=== PATIENT | female | born 1990 | race Two or more races ===

== ENCOUNTER 2019-08-29 23:46 | Inpatient (IN) | payer BC ==
[2019-08-30] MEDS ORDERED: Carboprost Tromethamine 250 MCG/1 ML Amp IM PRN (00:29)
[2019-08-30] MEDS ORDERED: Sodium Chloride 0.9% 10 ML Syringe FLUSH PRN (00:29)
[2019-08-30] MEDS ORDERED: Methylergonovine 0.2 MG/1 ML Amp IM PRN (00:29)
[2019-08-30] MEDS ORDERED: Tranexamic Acid 1,000 MG in Sodium Chloride 0.9% 100 ML IV PRN (00:29)
[2019-08-30] MEDS ORDERED: Sodium Chloride 0.9% 10 ML SDV IV PRN (00:29)
[2019-08-30] MEDS ORDERED: Sodium Chloride 0.9% 2.5 ML Syringe FLUSH PRN (00:29)
[2019-08-30] MEDS ORDERED: Nalbuphine 10 MG/1 ML Vial IVPUSH PRN (00:29)
[2019-08-30] MEDS ORDERED: Lidocaine 1% 50 ML MDV INJECT PRN (00:29)
[2019-08-30] MEDS ORDERED: Water For Irrigation,Sterile 1,000 ML Container IRR PRN (00:29)
[2019-08-30] MEDS ORDERED: Butorphanol 1 MG/ML SDV IVPUSH PRN (00:29)
[2019-08-30] MEDS ORDERED: Misoprostol 200 MCG Tab PO PRN (00:29)
[2019-08-30] MEDS ORDERED: Oxytocin/0.9 % Sodium Chloride 30 UNIT/500 ML BAG IV SCH ×3 (00:30→08:00)
[2019-08-30] MEDS ORDERED: Lactated Ringers 1,000 ML IV SCH (00:30)
[2019-08-30] MEDS ORDERED: Misoprostol 25 MCG (1/4 of 100 MCG) Tab VAG PRN ×2 (00:31)
[2019-08-30] MEDS ORDERED: Terbutaline 1 MG/ML SDV SUBCUT PRN (00:31)
[2019-08-30] MEDS ORDERED: Misoprostol 25 MCG (1/4 of 100 MCG) Tab PO ONE (00:32)
[2019-08-30 03:35] LABS: BLOOD UREA NITROGEN,BUN 18 mg/dL (7.0-18.0); CARBON DIOXIDE,CO2 23.9 mmol/L (21.0-32.0); CHLORIDE,CL 105 mmol/L (98-107); GLUCOSE RANDOM 111 mg/dL (74-106); POTASSIUM,K 4.4 mmol/L (3.5-5.1); SODIUM,NA 140 mmol/L (136-145)
[2019-08-30] MEDS ORDERED: Labetalol 100 MG/20 ML MDV IVPUSH ONE (06:54)
[2019-08-30] MEDS ORDERED: Calcium Gluconate 10% 1 GM/10 ML SDV IV PRN (07:46)
[2019-08-30] MEDS ORDERED: Magnesium Sulfate/Water 4 GM in Premix Bag 1 BAG IV ONE (07:46)
[2019-08-30] MEDS: Magnesium Sulfate/Water 20 GM/500 ML BAG IV SCH ×2 (08:30→18:31)
[2019-08-30] MEDS ORDERED: Ropivacaine HCl/PF 100 ML ONE ×2 (09:03→17:51)
[2019-08-30] MEDS ORDERED: fentaNYL 100 MCG/2 ML SDV ONE ×3 (09:03→17:51)
--- NOTE | 2019-08-30 09:31 | PCM.PREANE ---
Preanesthetic Assessment - Anesthesia/Transfusion/Family Hx Anesthesia History: No Prior Anesthesia Family History of Anesthesia Reaction: No Transfusion History: No Prior Transfusion(s) - Physical Assessment NPO Status Date: 08/30/19 NPO Status Time: 01:00 Height: 1.55 m Weight: 78.471 kg ASA Class: 1 - Lab Values: Laboratory Last Values WBC 7.17 K/uL (4.0-11.0) 08/30/19 00:50 RBC 3.22 M/uL (4.30-5.90) L 08/30/19 00:50 Hgb 10.0 g/dL (12.0-16.0) L 08/30/19 00:50 Hct 29.6 % (36.0-46.0) L 08/30/19 00:50 MCV 91.9 fL (80.0-98.0) 08/30/19 00:50 MCH 31.1 pg (27.0-32.0) 08/30/19 00:50 MCHC 33.8 g/dL (31.0-37.0) 08/30/19 00:50 RDW Std Deviation 43.6 fl (28.0-62.0) 08/30/19 00:50 RDW Coeff of Seble 14 % (11.0-15.0) 08/30/19 00:50 Plt Count 158 K/uL (150-400) 08/30/19 00:50 MPV 10.80 fL (7.40-12.00) 08/30/19 00:50 Sodium 140 mmol/L (136-145) 08/30/19 00:50 Potassium 4.4 mmol/L (3.5-5.1) 08/30/19 00:50 Chloride 105 mmol/L (98-107) 08/30/19 00:50 Carbon Dioxide 23.9 mmol/L (21.0-32.0) 08/30/19 00:50 BUN 18 mg/dL (7.0-18.0) 08/30/19 00:50 Creatinine 0.6 mg/dL (0.6-1.0) 08/30/19 00:50 Est Cr Clr Drug Dosing 106.28 mL/min 08/30/19 00:50 Estimated GFR (MDRD) > 60.0 ml/min 08/30/19 00:50 Glucose 111 mg/dL (74-106) H 08/30/19 00:50 Uric Acid 6.9 mg/dL (2.6-7.2) 08/30/19 00:50 Calcium 9.1 mg/dL (8.5-10.1) 08/30/19 00:50 Total Bilirubin 0.2 mg/dL (0.2-1.0) 08/30/19 00:50 AST 20 IU/L (15-37) 08/30/19 00:50 ALT 12 IU/L (14-63) L 08/30/19 00:50 Alkaline Phosphatase 178 U/L (46-116) H 08/30/19 00:50 Total Protein 6.0 g/dL (6.4-8.2) L 08/30/19 00:50 Albumin 2.3 g/dL (3.4-5.0) L 08/30/19 00:50 Globulin 3.7 g/dL (2.6-4.0) 08/30/19 00:50 Albumin/Globulin Ratio 0.6 (0.9-1.6) L 08/30/19 00:50 Urine Color YELLOW 08/30/19 01:20 Urine Appearance HAZY 08/30/19 01:20 Urine pH 6.0 (5.0-8.0) 08/30/19 01:20 Ur Specific [place] 1.025 (1.001-1.035) 08/30/19 01:20 Urine Protein 100 mg/dL (NEGATIVE) H 08/30/19 01:20 Urine Glucose (UA) NEGATIVE mg/dL (NEGATIVE) 08/30/19 01:20 Urine Ketones NEGATIVE mg/dL (NEGATIVE) 08/30/19 01:20 Urine Occult Blood TRACE-INTACT (NEGATIVE) H 08/30/19 01:20 Urine Nitrite NEGATIVE (NEGATIVE) 08/30/19 01:20 Urine Bilirubin NEGATIVE (NEGATIVE) 08/30/19 01:20 Urine Urobilinogen 0.2 EU/dL (<2.0) 08/30/19 01:20 Ur Leukocyte Esterase NEGATIVE (NEGATIVE) 08/30/19 01:20 Blood Type O POSITIVE 08/30/19 00:50 Antibody Screen NEGATIVE 08/30/19 00:50 - Allergies Allergies/Adverse Reactions: Allergies Allergy/AdvReac Type Severity Reaction Status Date / Time No Known Allergies Allergy Verified 02/05/17 10:20 - Acknowledgements Anesthesia Type Planned: Epidural Pt an Appropriate Candidate for the Planned Anesthesia: Yes Alternatives and Risks of Anesthesia Discussed w Pt/Guardian: Yes Pt/Guardian Understands and Agrees with Anesthesia Plan: Yes PreAnesthesia Questionnaire - Past Health History Medical/Surgical History: Denies Medical/Surgical History HEENT History: Reports: None Cardiovascular History: Reports: None Respiratory History: Reports: None Gastrointestinal History: Reports: None Genitourinary History: Reports: None 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: Musculoskeletal History: Reports: None Neurological History: Reports: Migraines Psychiatric History: Reports: None Endocrine/Metabolic History: Reports: None Hematologic History: Reports: None Immunologic History: Reports: None Oncologic (Cancer) History: Reports: None Dermatologic History: Reports: None - Infectious Disease History Infectious Disease History: Reports: None - Past Surgical History HEENT Surgical History: Reports: None Female Surgical History: Reports: None - SUBSTANCE USE Smoking Status *Q: Never Smoker Second Hand Smoke Exposure: No Recreational Drug Use History: No - HOME MEDS Home Medications: Home Meds Pnv No.103/Folic/Om3s/Fish Oil [ Gummies] 1 tab PO DAILY 07/04/19 [ History] - CURRENT (IN HOUSE) MEDS Current Meds: Current Medications Butorphanol Tartrate (Stadol) 1 mg IVPUSH Q1H PRN PRN Reason: Pain Calcium Gluconate (Calcium Gluconate) 1 gm IV ASDIRECTED PRN PRN Reason: respiratory distress Carboprost Tromethamine (Hemabate Ds) 250 mcg IM ASDIRECTED PRN PRN Reason: Post Hemorrhage Lactated Ringer's (Ringers, Lactated) 1,000 mls @ 150 mls/hr IV ASDIRECTED [facility] Oxytocin/Sodium Chloride (Oxytocin 30 Unit/500 Ml-Ns) 30 unit in 500 mls @ 500 mls/hr IV TITRATE MONA Tranexamic Acid 1,000 mg/ (Sodium Chloride) 110 mls @ 660 mls/hr IV ONETIME PRN PRN Reason: Bleeding Magnesium Sulfate (Magnesium Sulfate In Water Premix) 20 gm in 500 mls @ 50 mls /hr IV ASDIRECTED [facility] Last Admin: 08/30/19 08:30 Dose: 2 gm/hr, 50 mls/hr Oxytocin/Sodium Chloride (Oxytocin 30 Unit/500 Ml-Ns) 30 unit in 500 mls @ 2 mls/hr IV TITRATE MONA; Protocol Lidocaine HCl (Xylocaine 1%) 50 ml INJECT ONETIME PRN PRN Reason: Laceration repair Methylergonovine Maleate (Methergine) 0.2 mg IM ASDIRECTED PRN PRN Reason: Post Hemorrhage Misoprostol (Cytotec) 200 mcg PO ONETIME PRN PRN Reason: Post Hemorrhage Misoprostol (Cytotec) 25 mcg VAG ONETIME PRN PRN Reason: Cervical Ripening Last Admin: 08/30/19 01:29 Dose: 25 mcg Misoprostol (Cytotec) 25 mcg VAG Q4H PRN PRN Reason: Cervical Ripening Nalbuphine HCl (Nubain) 10 mg IVPUSH Q1H PRN PRN Reason: Pain (severe 7-10) Sodium Chloride (Saline Flush) 10 ml FLUSH ASDIRECTED PRN PRN Reason: Keep Vein Open Sodium Chloride (Saline Flush) 2.5 ml FLUSH ASDIRECTED PRN PRN Reason: Keep Vein Open Sodium Chloride (Normal Saline) 10 ml IV ASDIRECTED PRN PRN Reason: IV Use Sterile Water (Sterile Water For Irrigation) 1,000 ml IRR ASDIRECTED PRN PRN Reason: delivery Terbutaline Sulfate (Brethine) 0.25 mg SUBCUT ASDIRECTED PRN PRN Reason: Tacysystole Discontinued Medications Fentanyl (Sublimaze) Confirm Administered Dose 100 mcg .ROUTE .STK-MED ONE Stop: 08/30/19 09:04 Oxytocin/Sodium Chloride (Oxytocin 30 Unit/500 Ml-Ns) 30 unit in 500 mls @ 2 mls/hr IV TITRATE MONA; Protocol Magnesium Sulfate 4 gm/ Premix 100 mls @ 300 mls/hr IV BOLUS ONE Stop: 08/30/19 08:05 Last Admin: 08/30/19 08:15 Dose: 300 mls/hr Ropivacaine (Naropin 0.2%) Confirm Administered Dose 100 mls @ as directed .ROUTE .STK-MED ONE Stop: 08/30/19 09:04 Labetalol HCl (Normodyne) 10 mg IVPUSH ONETIME ONE; Protocol Stop: 08/30/19 06:55 Last Admin: 08/30/19 07:12 Dose: 10 mg Misoprostol (Cytotec) 25 mcg PO ONETIME ONE Stop: 08/30/19 00:33 Last Admin: 08/30/19 01:31 Dose: 25 mcg
--- NOTE | 2019-08-30 09:34 | PCM.PRNOTE ---
- Free Text/Narrative Note: Anes Note Patietn requests epidural for L&D. Sitting position, level L3-L4 miline approach. Sterile technique. Chloraprep scrub to lumbar area. Sterile fenestrated drape applied. Epidural space easily achieved using OLIVA technique. OLIVA at 4 cm. Cath threaded 5 cm with ease. Cath secure at 10 cm román ar skin using sterile clear adhesive dressing. 0917 test 3 cc 1.5% lido with epi negative 0920 load 10 cc 0.2% ropivicaine with 1 mcg cc fentanyl in slow divided doses. Pump started with 90 cc same solution. Rate is 8 cc hr with 6 cc q 20 min prn bolus. Zohaib well. Time with patient [id number] Marlon Alejandre PHOTOGRAPHY INTERN
[2019-08-30] MEDS ORDERED: Labetalol 100 MG/20 ML MDV IVPUSH PRN (11:13)
[2019-08-30] MEDS ORDERED: hydrALAZINE 20 MG/ML SDV IVPUSH PRN (11:13)
--- NOTE | 2019-08-30 12:11 | PCM.PRNOTE ---
- Free Text/Narrative Note: Anes Note Patietn reports incomplete analgesia left side. Epidural cath was removed easily and complete. A new epidural was placed at Level L3-L4 midline approach under sterile technique. Chloraprep scrub to lumbar area. Sterile fenestrated drape applied. Epidural space easily achieved single attempt using OLIVA technique. OLIVA at 3 cm. Cath threaded 5 cm with ease. Cath secured a tskin at 10 cm using sterile clear adhesive dressing. Test 1137 3 cc 1.5% lido with epi negative. 1140 load 2 cc fentanyl with 5 cc 2% lido with epi in slow divided doses. 1145 Pump restarted with same pump medication at same rate. Time with patient [id number] Marlon Alejandre CRNA
--- NOTE | 2019-08-30 18:01 | PCM.PRNOTE ---
- Free Text/Narrative Note: Anes Note Epidural infusion completed. A new bag of 100 cc 0.2% ropivicaine with 1 mcg cc fentanyl added was placed. A 5cc bolus was admisinstered, then the infusion was restarted. Rate is 8 cc hr with 6 cc q 20 min prn bolus. Time with patient [id number] Marlon Alejandre CRNA
[2019-08-30] MEDS ORDERED: Phenylephrine/Normal Saline 100 MCG/ML 10 ML Syringe ONE (19:40)
--- NOTE | 2019-08-30 20:19 | PCM.SN ---
- Free Text/Narrative Note: called to assist with post hpnt. BP 74 systolic. legs being elevated, iv of NS on presure bag. EBL for vag delivery was 500 ml. Pt with severe preeclampsia, was on mag. no off. last Mg level=7. Ephedrine 15 mg administered with prompt mandaeism to BP to 146/, 5 min later 138/, 5 min later 147. Will follow.
[2019-08-30 20:51] LABS: CARBON DIOXIDE,CO2 19.7 mmol/L (21.0-32.0); POTASSIUM,K 4.4 mmol/L (3.5-5.1)
[2019-08-30] MEDS ORDERED: Witch Hazel Medicated Pads 40/Jar TOP PRN (21:30)
[2019-08-30] MEDS ORDERED: Ibuprofen 400 MG Tab PO PRN (21:30)
[2019-08-30] MEDS ORDERED: Benzocaine/Menthol 20%-0.5% Spray 78 GM Cannister TOP PRN (21:30)
[2019-08-30] MEDS ORDERED: Bisacodyl 10 MG Supp RECTAL PRN (21:30)
[2019-08-30] MEDS ORDERED: oxyCODONE 5 MG Tab PO PRN (21:30)
[2019-08-30] MEDS ORDERED: Acetaminophen 500 MG Tab PO PRN (21:30)
[2019-08-30] MEDS ORDERED: Lanolin 100% Cream 7 GM Tube TOP PRN (21:30)
[2019-08-30] MEDS ORDERED: Docusate Sodium 100 MG Cap PO PRN (21:30)
--- NOTE | 2019-08-30 21:42 | PCM.DEL ---
L & D Note - General Info Date of Service: 08/30/19 Mother's Due Date: 08/29/19 - Delivery Note Labor: Induced by Oxytocin Cervical Ripening Method: Misoprostil Delivery Outcome: Livebirth Delivery Method: Spontaneous Vaginal Delivery-Single Presentation: Left Occiput Anterior (MIGUEL) Nuchal Cord: None Prep: Other Anesthesia Type: Epidural Amniotic Fluid Description: Meconium Stained Episiotomy Type: None Laceration: 2nd Degree Suture type: Vicryl Suture size: 3-0 Placenta: Intact, Spontaneous Cord: 3 Vessels Estimated Blood Loss: 500 Resuscitation Needed: No Vesper: Suctioned Score 1 min: 8 Score 5 min: 9 Delivery Comments (Free Text/Narrative):: Liveborn male - General Info Date of Service: 08/30/19 - Patient Data Vitals - Most Recent: Last Vital Signs Temp Pulse Resp BP Pulse Ox 97 08/30/19 07:47 Weight - Most Recent: 78.471 kg Lab Results Last 24 Hours: Laboratory Results - last 24 hr 08/30/19 08/30/19 08/30/19 Range/Units 00:50 00:50 00:50 WBC 7.17 (4.0-11.0) K/uL RBC 3.22 L (4.30-5.90) M/uL Hgb 10.0 L (12.0-16.0) g/dL Hct 29.6 L (36.0-46.0) % MCV 91.9 (80.0-98.0) fL MCH 31.1 (27.0-32.0) pg MCHC 33.8 (31.0-37.0) g/dL RDW Std Deviation 43.6 (28.0-62.0) fl RDW Coeff of Seble 14 (11.0-15.0) % Plt Count 158 (150-400) K/uL MPV 10.80 (7.40-12.00) fL Sodium 140 (136-145) mmol/L Potassium 4.4 (3.5-5.1) mmol/L Chloride 105 (98-107) mmol/L Carbon Dioxide 23.9 (21.0-32.0) mmol/L BUN 18 (7.0-18.0) mg/dL Creatinine 0.6 (0.6-1.0) mg/dL Est Cr Clr Drug Dosing 106.28 mL/min Estimated GFR (MDRD) > 60.0 ml/min Glucose 111 H (74-106) mg/dL Uric Acid 6.9 (2.6-7.2) mg/dL Calcium 9.1 (8.5-10.1) mg/dL Magnesium (1.8-2.4) mg/dL Total Bilirubin 0.2 (0.2-1.0) mg/dL AST 20 (15-37) IU/L ALT 12 L (14-63) IU/L Alkaline Phosphatase 178 H (46-116) U/L Total Protein 6.0 L (6.4-8.2) g/dL Albumin 2.3 L (3.4-5.0) g/dL Globulin 3.7 (2.6-4.0) g/dL Albumin/Globulin Ratio 0.6 L (0.9-1.6) Urine Color Urine Appearance Urine pH (5.0-8.0) Ur Specific [place] (1.001-1.035) Urine Protein (NEGATIVE) mg/dL Urine Glucose (UA) (NEGATIVE) mg/dL Urine Ketones (NEGATIVE) mg/dL Urine Occult Blood (NEGATIVE) Urine Nitrite (NEGATIVE) Urine Bilirubin (NEGATIVE) Urine Urobilinogen (<2.0) EU/dL Ur Leukocyte Esterase (NEGATIVE) Blood Type O POSITIVE Antibody Screen NEGATIVE 08/30/19 08/30/19 08/30/19 Range/Units 01:20 12:05 18:25 WBC (4.0-11.0) K/uL RBC (4.30-5.90) M/uL Hgb (12.0-16.0) g/dL Hct (36.0-46.0) % MCV (80.0-98.0) fL MCH (27.0-32.0) pg MCHC (31.0-37.0) g/dL RDW Std Deviation (28.0-62.0) fl RDW Coeff of Seble (11.0-15.0) % Plt Count (150-400) K/uL MPV (7.40-12.00) fL Sodium (136-145) mmol/L Potassium (3.5-5.1) mmol/L Chloride (98-107) mmol/L Carbon Dioxide (21.0-32.0) mmol/L BUN (7.0-18.0) mg/dL Creatinine (0.6-1.0) mg/dL Est Cr Clr Drug Dosing mL/min Estimated GFR (MDRD) ml/min Glucose (74-106) mg/dL Uric Acid (2.6-7.2) mg/dL Calcium (8.5-10.1) mg/dL Magnesium 5.2 H 7.4 H (1.8-2.4) mg/dL Total Bilirubin (0.2-1.0) mg/dL AST (15-37) IU/L ALT (14-63) IU/L Alkaline Phosphatase (46-116) U/L Total Protein (6.4-8.2) g/dL Albumin (3.4-5.0) g/dL Globulin (2.6-4.0) g/dL Albumin/Globulin Ratio (0.9-1.6) Urine Color YELLOW Urine Appearance HAZY Urine pH 6.0 (5.0-8.0) Ur Specific [place] 1.025 (1.001-1.035) Urine Protein 100 H (NEGATIVE) mg/dL Urine Glucose (UA) NEGATIVE (NEGATIVE) mg/dL Urine Ketones NEGATIVE (NEGATIVE) mg/dL Urine Occult Blood TRACE-INTACT H (NEGATIVE) Urine Nitrite NEGATIVE (NEGATIVE) Urine Bilirubin NEGATIVE (NEGATIVE) Urine Urobilinogen 0.2 (<2.0) EU/dL Ur Leukocyte Esterase NEGATIVE (NEGATIVE) Blood Type Antibody Screen 08/30/19 08/30/19 Range/Units 20:25 20:25 WBC (4.0-11.0) K/uL RBC (4.30-5.90) M/uL Hgb 8.7 L (12.0-16.0) g/dL Hct 26.3 L (36.0-46.0) % MCV (80.0-98.0) fL MCH (27.0-32.0) pg MCHC (31.0-37.0) g/dL RDW Std Deviation (28.0-62.0) fl RDW Coeff of Seble (11.0-15.0) % Plt Count (150-400) K/uL MPV (7.40-12.00) fL Sodium 137 (136-145) mmol/L Potassium 4.4 (3.5-5.1) mmol/L Chloride 105 (98-107) mmol/L Carbon Dioxide 19.7 L (21.0-32.0) mmol/L BUN 20 H (7.0-18.0) mg/dL Creatinine 1.1 H (0.6-1.0) mg/dL Est Cr Clr Drug Dosing 57.97 mL/min Estimated GFR (MDRD) 59.6 ml/min Glucose 113 H (74-106) mg/dL Uric Acid (2.6-7.2) mg/dL Calcium 7.4 L (8.5-10.1) mg/dL Magnesium 6.1 H (1.8-2.4) mg/dL Total Bilirubin 0.2 (0.2-1.0) mg/dL AST 17 (15-37) IU/L ALT 11 L (14-63) IU/L Alkaline Phosphatase 149 H (46-116) U/L Total Protein 4.9 L (6.4-8.2) g/dL Albumin 1.9 L (3.4-5.0) g/dL Globulin 3.0 (2.6-4.0) g/dL Albumin/Globulin Ratio 0.6 L (0.9-1.6) Urine Color Urine Appearance Urine pH (5.0-8.0) Ur Specific [place] (1.001-1.035) Urine Protein (NEGATIVE) mg/dL Urine Glucose (UA) (NEGATIVE) mg/dL Urine Ketones (NEGATIVE) mg/dL Urine Occult Blood (NEGATIVE) Urine Nitrite (NEGATIVE) Urine Bilirubin (NEGATIVE) Urine Urobilinogen (<2.0) EU/dL Ur Leukocyte Esterase (NEGATIVE) Blood Type Antibody Screen Med Orders - Current: Current Medications Acetaminophen (Tylenol Extra Strength) 500 mg PO Q4H PRN PRN Reason: Pain Acetaminophen (Tylenol Extra Strength) 1,000 mg PO Q4H PRN PRN Reason: Pain Benzocaine/Menthol (Dermoplast Pain Relief 20%-0.5% [place]) 78 gm TOP ASDIRECTED PRN PRN Reason: Perineal Comfort Measure Bisacodyl (Dulcolax) 10 mg RECTAL ONETIME PRN PRN Reason: Constipation Calcium Gluconate (Calcium Gluconate) 1 gm IV ASDIRECTED PRN PRN Reason: respiratory distress Carboprost Tromethamine (Hemabate Ds) 250 mcg IM ASDIRECTED PRN PRN Reason: Post Hemorrhage Docusate Sodium (Colace) 100 mg PO BID PRN PRN Reason: Constipation Emollient Ointment (Lansinoh Hpa) 0 gm TOP ASDIRECTED PRN PRN Reason: Sore Nipples Hydralazine HCl (Apresoline) 10 mg IVPUSH ONETIME PRN PRN Reason: Hypertension Tranexamic Acid 1,000 mg/ (Sodium Chloride) 110 mls @ 660 mls/hr IV ONETIME PRN PRN Reason: Bleeding Last Admin: 08/30/19 19:34 Dose: 660 mls/hr Magnesium Sulfate (Magnesium Sulfate In Water Premix) 20 gm in 500 mls @ 50 mls /hr IV ASDIRECTED MONA Last Infusion: 08/30/19 19:15 Dose: 0 gm/hr, 0 mls/hr Oxytocin/Sodium Chloride (Oxytocin 30 Unit/500 Ml-Ns) 30 unit in 500 mls @ 2 mls/hr IV TITRATE MONA; Protocol Last Titration: 08/30/19 19:24 Dose: 0 munits/min, 0 mls/hr Ibuprofen (Motrin) 400 mg PO Q4H PRN PRN Reason: Pain Ibuprofen (Motrin) 800 mg PO Q6H PRN PRN Reason: Pain Labetalol HCl (Normodyne) 20 mg IVPUSH Q10M PRN; Protocol PRN Reason: Hypertension Methylergonovine Maleate (Methergine) 0.2 mg IM ASDIRECTED PRN PRN Reason: Post Hemorrhage Misoprostol (Cytotec) 200 mcg PO ONETIME PRN PRN Reason: Post Hemorrhage Oxycodone HCl (Oxycodone) 5 mg PO Q2H PRN PRN Reason: Pain Sodium Chloride (Saline Flush) 10 ml FLUSH ASDIRECTED PRN PRN Reason: Keep Vein Open Sodium Chloride (Saline Flush) 2.5 ml FLUSH ASDIRECTED PRN PRN Reason: Keep Vein Open Sodium Chloride (Normal Saline) 10 ml IV ASDIRECTED PRN PRN Reason: IV Use Witch Liliam (Tucks) 1 pad TOP ASDIRECTED PRN PRN Reason: comfort care Discontinued Medications Butorphanol Tartrate (Stadol) 1 mg IVPUSH Q1H PRN PRN Reason: Pain Fentanyl (Sublimaze) Confirm Administered Dose 100 mcg .ROUTE .STK-MED ONE Stop: 08/30/19 09:04 Fentanyl (Sublimaze) Confirm Administered Dose 100 mcg .ROUTE .STK-MED ONE Stop: 08/30/19 11:29 Fentanyl (Sublimaze) Confirm Administered Dose 100 mcg .ROUTE .STK-MED ONE Stop: 08/30/19 17:52 Lactated Ringer's (Ringers, Lactated) 1,000 mls @ 150 mls/hr IV ASDIRECTED MONA Oxytocin/Sodium Chloride (Oxytocin 30 Unit/500 Ml-Ns) 30 unit in 500 mls @ 500 mls/hr IV TITRATE MONA Oxytocin/Sodium Chloride (Oxytocin 30 Unit/500 Ml-Ns) 30 unit in 500 mls @ 2 mls/hr IV TITRATE MONA; Protocol Magnesium Sulfate 4 gm/ Premix 100 mls @ 300 mls/hr IV BOLUS ONE Stop: 08/30/19 08:05 Last Admin: 08/30/19 08:15 Dose: 300 mls/hr Ropivacaine (Naropin 0.2%) Confirm Administered Dose 100 mls @ as directed .ROUTE .STK-MED ONE Stop: 08/30/19 09:04 Ropivacaine (Naropin 0.2%) Confirm Administered Dose 100 mls @ as directed .ROUTE .STK-MED ONE Stop: 08/30/19 17:52 Labetalol HCl (Normodyne) 10 mg IVPUSH ONETIME ONE; Protocol Stop: 08/30/19 06:55 Last Admin: 08/30/19 07:12 Dose: 10 mg Lidocaine HCl (Xylocaine 1%) 50 ml INJECT ONETIME PRN PRN Reason: Laceration repair Misoprostol (Cytotec) 25 mcg VAG ONETIME PRN PRN Reason: Cervical Ripening Last Admin: 08/30/19 01:29 Dose: 25 mcg Misoprostol (Cytotec) 25 mcg VAG Q4H PRN PRN Reason: Cervical Ripening Misoprostol (Cytotec) 25 mcg PO ONETIME ONE Stop: 08/30/19 00:33 Last Admin: 08/30/19 01:31 Dose: 25 mcg Nalbuphine HCl (Nubain) 10 mg IVPUSH Q1H PRN PRN Reason: Pain (severe 7-10) Phenylephrine HCl (Phenylephrine In Ns 100 Mcg/Ml) Confirm Administered Dose 1 mg .ROUTE .STK-MED ONE Stop: 08/30/19 19:41 Sterile Water (Sterile Water For Irrigation) 1,000 ml IRR ASDIRECTED PRN PRN Reason: delivery Last Admin: 08/30/19 19:20 Dose: 1,000 ml Terbutaline Sulfate (Brethine) 0.25 mg SUBCUT ASDIRECTED PRN PRN Reason: Tacysystole - Problem List & Annotations (1) Pre-eclampsia, severe, with delivery SNOMED Code(s): 632060942, 724733560 Code(s): O14.14 - SEVERE PRE-ECLAMPSIA COMPLICATING CHILDBIRTH Status: Acute Current Visit: Yes (2) Normal vaginal delivery SNOMED Code(s): 47766664, 301438102 Code(s): O80 - ENCOUNTER FOR FULL-TERM UNCOMPLICATED DELIVERY Status: Acute Current Visit: Yes - Problem List Review Problem List Initiated/Reviewed/Updated: Yes - My Orders Last 24 Hours: My Active Orders 08/30/19 07:46 Communication Order [RC] PRN Communication Order [RC] PRN Height and Weight [RC] DAILY Intake and Output [RC] QSHIFT Notify Provider [RC] PRN Oxygen Therapy [RC] PRN Vital Signs [RC] ASDIRECTED Calcium Gluconate 1 gm IV ASDIRECTED PRN 08/30/19 07:47 Equipment to Bedside [RC] PRN Notify Provider Status Change [RC] ASDIRECTED 08/30/19 08:00 Magnesium Sulfate/Water [Magnesium Sulfate in Water Premix] 20 gm in 500 ml IV ASDIRECTED Oxytocin/0.9 % Sodium Chloride [Oxytocin 30 Unit/500 ML-NS] 30 unit in 500 ml IV TITRATE Deep Tendon Reflexes [WOMSER] Q1H 08/30/19 09:00 Deep Tendon Reflexes [WOMSER] Q1H 08/30/19 10:00 Deep Tendon Reflexes [WOMSER] Q1H 08/30/19 11:00 Deep Tendon Reflexes [WOMSER] Q1H 08/30/19 11:13 Labetalol [Normodyne] 20 mg IVPUSH Q10M PRN hydrALAZINE [Apresoline] 10 mg IVPUSH ONETIME PRN 08/30/19 12:00 Deep Tendon Reflexes [WOMSER] Q1H 08/30/19 13:00 Deep Tendon Reflexes [WOMSER] Q1H 08/30/19 14:00 Deep Tendon Reflexes [WOMSER] Q1 08/30/19 15:00 Deep Tendon Reflexes [WOMSER] Q1 08/30/19 16:00 Deep Tendon Reflexes [WOMSER] Q1 08/30/19 17:00 Deep Tendon Reflexes [WOMSER] Q1 08/30/19 18:00 Deep Tendon Reflexes [WOMSER] Q1 08/30/19 19:00 Deep Tendon Reflexes [WOMSER] Q1 08/30/19 20:00 Deep Tendon Reflexes [WOMSER] Q1 08/30/19 21:00 Deep Tendon Reflexes [WOMSER] Q1 08/30/19 21:30 Patient Status [ADT] Routine May Shower [RC] ASDIRECTED Up ad Mariah [RC] ASDIRECTED Vital Signs [RC] PER UNIT ROUTINE Acetaminophen [Tylenol Extra Strength] 1,000 mg PO Q4H PRN Acetaminophen [Tylenol Extra Strength] 500 mg PO Q4H PRN Benzocaine/Menthol [Dermoplast Pain Relief 20%-0.5% [place]] 78 gm TOP ASDIRECTED PRN Docusate Sodium [Colace] 100 mg PO BID PRN Ibuprofen [Motrin] 400 mg PO Q4H PRN Ibuprofen [Motrin] 800 mg PO Q6H PRN Lanolin [Lansinoh HPA] See Dose Instructions TOP ASDIRECTED PRN bisacodyL [Dulcolax] 10 mg RECTAL ONETIME PRN oxyCODONE 5 mg PO Q2H PRN witch Liliam [Tucks] 1 pad TOP ASDIRECTED PRN Assess Lochia [WOMSER] Per Unit Routine Assess Uterine Involution [WOMSER] Per Unit Routine Peripheral IV Discontinue [OM.PC] Routine 08/30/19 22:00 Deep Tendon Reflexes [WOMSER] Q1H 08/30/19 23:00 Deep Tendon Reflexes [WOMSER] Q1H 08/31/19 00:00 MAGNESIUM [CHEM] Q6H Deep Tendon Reflexes [WOMSER] Q1H 08/31/19 01:00 Deep Tendon Reflexes [WOMSER] Q1H 08/31/19 02:00 Deep Tendon Reflexes [WOMSER] Q1H 08/31/19 03:00 Deep Tendon Reflexes [WOMSER] Q1H 08/31/19 04:00 Deep Tendon Reflexes [WOMSER] Q1H 08/31/19 05:00 Deep Tendon Reflexes [WOMSER] Q1H 08/31/19 05:11 HEMOGLOBIN/HEMATOCRIT,HH [HEME] Timed 08/31/19 06:00 MAGNESIUM [CHEM] Q6H Deep Tendon Reflexes [WOMSER] Q1H 08/31/19 07:00 Deep Tendon Reflexes [WOMSER] Q1H 08/31/19 Breakfast Regular Diet [DIET]
[2019-08-30] MEDS ORDERED: Sodium Chloride 0.9% 0 ML ONE ×2 (21:47→22:20)
[2019-08-30] MEDS: Ibuprofen 800 MG Tab PO PRN (21:52)
[2019-08-30] MEDS: Acetaminophen 500 MG Tab PO PRN (22:00)
--- NOTE | 2019-08-30 22:44 | OR ---
SURGEON: Angela Gatica M.D. DATE OF PROCEDURE: 08/30/2019 PREOPERATIVE DIAGNOSIS: 40-week intrauterine with preeclampsia. POSTOPERATIVE DIAGNOSIS: 40-week intrauterine with preeclampsia. PROCEDURE: Cytotec and Pitocin induction of labor, magnesium seizure prophylaxis, term spontaneous vaginal delivery, repair of second-degree laceration. PRIMARY SURGEON: Angela Gatica M.D. ANESTHESIA: Epidural. ESTIMATED BLOOD LOSS: 500 mL. FINDINGS: Liveborn male. scores 8 and 9. Weighing 4080 g. Placenta spontaneous. Schultze intact with 3 vessels. Second-degree perineal laceration repaired. COMPLICATIONS: None known. DISPOSITION: Mother and baby are in LDR in good condition. BRIEF HISTORY: This is a 29-year-old female. She is G1, P0. I am covering for Dr. Ivory as a locum's coverage, and Gretchen has seen his stone spreader operator, both Shelli Little and Cristiana Tobin. She was scheduled for a postdates induction of labor. However, upon arrival, she was noted to have elevated blood pressures, proteinuria with blood pressures in the severe range with the systolics up to 160 and diastolics greater than 100. She was therefore started on Cytotec. She received magnesium for seizure prophylaxis and she received an epidural for pain control. She had good category 1 heart tones throughout labor. She received an IUPC for management of her Pitocin and she progressed to complete. DESCRIPTION OF PROCEDURE: With the patient in dorsal lithotomy position, the patient pushed over a 45- minute time period to 5+ station at which time the head was delivered spontaneously and atraumatically over the perineum with support with subsequent delivery of the 's shoulders and body without any difficulty. The was bulb suctioned by nose and mouth. After the cord had ceased to pulsate, it was doubly clamped and cut and the was handed to the mother in the presence of the nurse attending delivery. The infant was a liveborn male, scores 8 and 9, weighing 4080 g. Placenta was delivered spontaneously. Schultze intact with 3 vessels. Upon inspection the pelvis and perineum, there were no periurethral, vaginal sidewall, cervical, or rectal lacerations. There was a second-degree perineal laceration. On each side of the perineal laceration, there was an artery that was bleeding. These were clamped with hemostats and cut. Immediately prior to the delivery, it was noted that her magnesium level was 7.4. Therefore, the magnesium was completely discontinued prior to the delivery. Immediately following the delivery, the patient became hypotensive. Although she was not tachycardic, she was symptomatic with the hypotension. She received a fluid bolus. Initially, blood pressures improved. The perineum was repaired after ligation of the vessel. [id number] sutures were placed in the deep perineal tissue. A running suture of 3-0 Vicryl was used to reapproximate the vaginal mucosa, deep running suture of the same for the deep perineal tissue, and a subcuticular of the same for the skin. Final sponge, needle, and instrument counts were correct after repair. As I was leaving the room, again she became hypotensive. At this point, I again called Anesthesia. They did give her a single dose of ephedrine. Her epidural had been removed immediately after delivery due to the hypotension. Additionally, the magnesium was off. She was receiving no medications. With a single dose of ephedrine, her blood pressures did return to normal, and hemoglobin was checked. Preoperatively, on admission, her hemoglobin was 10. Postoperatively, it was 8.7, which was a normal drop for vaginal delivery. She is currently stable. She is normotensive and not tachycardic. We will continue with the magnesium off unless blood pressures resume into the severe range. MICHAELA BANUELOS /[id number]
[2019-08-31] MEDS: Acetaminophen 500 MG Tab PO PRN ×3 (02:18→20:33)
--- NOTE | 2019-08-31 10:04 | PCM.PNPP ---
- General Info Date of Service: 08/31/19 Subjective Update: had neck pain for sleeping in bed, denies headache or visual changes, denies shortness of breath. Functional Status: Reports: Pain Controlled, Tolerating Diet, Ambulating. Denies: Urinating (catheter in place for monitoring urine outpus.) - Review of Systems General: Reports: No Symptoms HEENT: Reports: No Symptoms Pulmonary: Reports: No Symptoms Cardiovascular: Reports: No Symptoms Gastrointestinal: Reports: No Symptoms Genitourinary: Reports: No Symptoms Musculoskeletal: Reports: No Symptoms Skin: Reports: No Symptoms Neurological: Reports: No Symptoms Psychiatric: Reports: No Symptoms - General Info Date of Service: 08/31/19 - Patient Data Vital Signs - Most Recent: Last Vital Signs Temp 36.7 C 08/31/19 07:30 Pulse 81 08/31/19 09:00 Resp 16 08/31/19 09:00 BP 115/59 L 08/31/19 09:00 Pulse Ox 98 08/31/19 09:00 Weight - Most Recent: 78.471 kg I&O - Last 24 Hours: Intake & Output 08/30/19 08/31/19 08/31/19 22:59 06:59 14:59 Output Total 925 Balance -925 Lab Results - Last 24 Hours: Laboratory Results - last 24 hr 08/30/19 08/30/19 08/30/19 Range/Units 12:05 18:25 20:25 Hgb 8.7 L (12.0-16.0) g/dL Hct 26.3 L (36.0-46.0) % Sodium (136-145) mmol/L Potassium (3.5-5.1) mmol/L Chloride (98-107) mmol/L Carbon Dioxide (21.0-32.0) mmol/L BUN (7.0-18.0) mg/dL Creatinine (0.6-1.0) mg/dL Est Cr Clr Drug Dosing mL/min Estimated GFR (MDRD) ml/min Glucose (74-106) mg/dL Calcium (8.5-10.1) mg/dL Magnesium 5.2 H 7.4 H (1.8-2.4) mg/dL Total Bilirubin (0.2-1.0) mg/dL AST (15-37) IU/L ALT (14-63) IU/L Alkaline Phosphatase (46-116) U/L Total Protein (6.4-8.2) g/dL Albumin (3.4-5.0) g/dL Globulin (2.6-4.0) g/dL Albumin/Globulin Ratio (0.9-1.6) 08/30/19 08/31/19 08/31/19 Range/Units 20:25 00:13 06:10 Hgb (12.0-16.0) g/dL Hct (36.0-46.0) % Sodium 137 (136-145) mmol/L Potassium 4.4 (3.5-5.1) mmol/L Chloride 105 (98-107) mmol/L Carbon Dioxide 19.7 L (21.0-32.0) mmol/L BUN 20 H (7.0-18.0) mg/dL Creatinine 1.1 H (0.6-1.0) mg/dL Est Cr Clr Drug Dosing 57.97 mL/min Estimated GFR (MDRD) 59.6 ml/min Glucose 113 H (74-106) mg/dL Calcium 7.4 L (8.5-10.1) mg/dL Magnesium 6.1 H 4.4 H 3.5 H (1.8-2.4) mg/dL Total Bilirubin 0.2 (0.2-1.0) mg/dL AST 17 (15-37) IU/L ALT 11 L (14-63) IU/L Alkaline Phosphatase 149 H (46-116) U/L Total Protein 4.9 L (6.4-8.2) g/dL Albumin 1.9 L (3.4-5.0) g/dL Globulin 3.0 (2.6-4.0) g/dL Albumin/Globulin Ratio 0.6 L (0.9-1.6) 08/31/19 Range/Units 06:10 Hgb 6.9 L (12.0-16.0) g/dL Hct 20.8 L (36.0-46.0) % Sodium (136-145) mmol/L Potassium (3.5-5.1) mmol/L Chloride (98-107) mmol/L Carbon Dioxide (21.0-32.0) mmol/L BUN (7.0-18.0) mg/dL Creatinine (0.6-1.0) mg/dL Est Cr Clr Drug Dosing mL/min Estimated GFR (MDRD) ml/min Glucose (74-106) mg/dL Calcium (8.5-10.1) mg/dL Magnesium (1.8-2.4) mg/dL Total Bilirubin (0.2-1.0) mg/dL AST (15-37) IU/L ALT (14-63) IU/L Alkaline Phosphatase (46-116) U/L Total Protein (6.4-8.2) g/dL Albumin (3.4-5.0) g/dL Globulin (2.6-4.0) g/dL Albumin/Globulin Ratio (0.9-1.6) Med Orders - Current: Current Medications Acetaminophen (Tylenol Extra Strength) 500 mg PO Q4H PRN PRN Reason: Pain Acetaminophen (Tylenol Extra Strength) 1,000 mg PO Q4H PRN PRN Reason: Pain Last Admin: 08/31/19 07:57 Dose: 1,000 mg Benzocaine/Menthol (Dermoplast Pain Relief 20%-0.5% [place]) 78 gm TOP ASDIRECTED PRN PRN Reason: Perineal Comfort Measure Last Admin: 08/30/19 22:03 Dose: 1 canister Bisacodyl (Dulcolax) 10 mg RECTAL ONETIME PRN PRN Reason: Constipation Calcium Gluconate (Calcium Gluconate) 1 gm IV ASDIRECTED PRN PRN Reason: respiratory distress Carboprost Tromethamine (Hemabate Ds) 250 mcg IM ASDIRECTED PRN PRN Reason: Post Hemorrhage Docusate Sodium (Colace) 100 mg PO BID PRN PRN Reason: Constipation Last Admin: 08/30/19 22:04 Dose: 100 mg Emollient Ointment (Lansinoh Hpa) 0 gm TOP ASDIRECTED PRN PRN Reason: Sore Nipples Last Admin: 08/30/19 22:04 Dose: 7 gm Hydralazine HCl (Apresoline) 10 mg IVPUSH ONETIME PRN PRN Reason: Hypertension Tranexamic Acid 1,000 mg/ (Sodium Chloride) 110 mls @ 660 mls/hr IV ONETIME PRN PRN Reason: Bleeding Last Admin: 08/30/19 19:34 Dose: 660 mls/hr Magnesium Sulfate (Magnesium Sulfate In Water Premix) 20 gm in 500 mls @ 50 mls /hr IV ASDIRECTED MONA Last Infusion: 08/30/19 19:15 Dose: 0 gm/hr, 0 mls/hr Oxytocin/Sodium Chloride (Oxytocin 30 Unit/500 Ml-Ns) 30 unit in 500 mls @ 2 mls/hr IV TITRATE MONA; Protocol Last Titration: 08/30/19 19:24 Dose: 0 munits/min, 0 mls/hr Ibuprofen (Motrin) 400 mg PO Q4H PRN PRN Reason: Pain Ibuprofen (Motrin) 800 mg PO Q6H PRN PRN Reason: Pain Last Admin: 08/30/19 21:52 Dose: 800 mg Labetalol HCl (Normodyne) 20 mg IVPUSH Q10M PRN; Protocol PRN Reason: Hypertension Methylergonovine Maleate (Methergine) 0.2 mg IM ASDIRECTED PRN PRN Reason: Post Hemorrhage Misoprostol (Cytotec) 200 mcg PO ONETIME PRN PRN Reason: Post Hemorrhage Oxycodone HCl (Oxycodone) 5 mg PO Q2H PRN PRN Reason: Pain Sodium Chloride (Saline Flush) 10 ml FLUSH ASDIRECTED PRN PRN Reason: Keep Vein Open Sodium Chloride (Saline Flush) 2.5 ml FLUSH ASDIRECTED PRN PRN Reason: Keep Vein Open Sodium Chloride (Normal Saline) 10 ml IV ASDIRECTED PRN PRN Reason: IV Use Witch Mac (Tucks) 1 pad TOP ASDIRECTED PRN PRN Reason: comfort care Last Admin: 08/30/19 22:04 Dose: 1 tub Discontinued Medications Butorphanol Tartrate (Stadol) 1 mg IVPUSH Q1H PRN PRN Reason: Pain Fentanyl (Sublimaze) Confirm Administered Dose 100 mcg .ROUTE .STK-MED ONE Stop: 08/30/19 09:04 Fentanyl (Sublimaze) Confirm Administered Dose 100 mcg .ROUTE .STK-MED ONE Stop: 08/30/19 11:29 Fentanyl (Sublimaze) Confirm Administered Dose 100 mcg .ROUTE .STK-MED ONE Stop: 08/30/19 17:52 Lactated Ringer's (Ringers, Lactated) 1,000 mls @ 150 mls/hr IV ASDIRECTED MONA Oxytocin/Sodium Chloride (Oxytocin 30 Unit/500 Ml-Ns) 30 unit in 500 mls @ 500 mls/hr IV TITRATE MONA Oxytocin/Sodium Chloride (Oxytocin 30 Unit/500 Ml-Ns) 30 unit in 500 mls @ 2 mls/hr IV TITRATE MONA; Protocol Magnesium Sulfate 4 gm/ Premix 100 mls @ 300 mls/hr IV BOLUS ONE Stop: 08/30/19 08:05 Last Admin: 08/30/19 08:15 Dose: 300 mls/hr Ropivacaine (Naropin 0.2%) Confirm Administered Dose 100 mls @ as directed .ROUTE .STK-MED ONE Stop: 08/30/19 09:04 Ropivacaine (Naropin 0.2%) Confirm Administered Dose 100 mls @ as directed .ROUTE .STK-MED ONE Stop: 08/30/19 17:52 Sodium Chloride (Normal Saline) Confirm Administered Dose 0 mls @ as directed .ROUTE .STK-MED ONE Stop: 08/30/19 21:48 Sodium Chloride (Normal Saline) Confirm Administered Dose 100 mls @ as directed .ROUTE .STK-MED ONE Stop: 08/30/19 22:21 Labetalol HCl (Normodyne) 10 mg IVPUSH ONETIME ONE; Protocol Stop: 08/30/19 06:55 Last Admin: 08/30/19 07:12 Dose: 10 mg Lidocaine HCl (Xylocaine 1%) 50 ml INJECT ONETIME PRN PRN Reason: Laceration repair Misoprostol (Cytotec) 25 mcg VAG ONETIME PRN PRN Reason: Cervical Ripening Last Admin: 08/30/19 01:29 Dose: 25 mcg Misoprostol (Cytotec) 25 mcg VAG Q4H PRN PRN Reason: Cervical Ripening Misoprostol (Cytotec) 25 mcg PO ONETIME ONE Stop: 08/30/19 00:33 Last Admin: 08/30/19 01:31 Dose: 25 mcg Nalbuphine HCl (Nubain) 10 mg IVPUSH Q1H PRN PRN Reason: Pain (severe 7-10) Phenylephrine HCl (Phenylephrine In Ns 100 Mcg/Ml) Confirm Administered Dose 1 mg .ROUTE .STK-MED ONE Stop: 08/30/19 19:41 Sterile Water (Sterile Water For Irrigation) 1,000 ml IRR ASDIRECTED PRN PRN Reason: delivery Last Admin: 08/30/19 19:20 Dose: 1,000 ml Terbutaline Sulfate (Brethine) 0.25 mg SUBCUT ASDIRECTED PRN PRN Reason: Tacysystole Tranexamic Acid (Cyklokapron) Confirm Administered Dose 1,000 mg .ROUTE .STK- MED ONE Stop: 08/30/19 21:47 - Infant Interaction Disposition, : [place] in Room with Family Infant Interaction: Holding Infant Feeding: Breastfed ; Nursed Well Support Person: - Recovery Exam Fundal Tone: Firm Fundal Level: 2 Fingerbreadths Below Umbilicus Fundal Placement: Midline Lochia Amount: Scant Lochia Color: Rubra/Red - Exam General: Alert, Oriented Neck: Supple Lungs: Clear to Auscultation, Normal Respiratory Effort Cardiovascular: Regular Rate, Regular Rhythm GI/Abdominal Exam: Normal Bowel Sounds, Soft, Non-Tender, No Organomegaly, No Distention, No Abnormal Bruit Extremities: Normal Inspection. No: No Pedal Edema (1+ edemea (improved)) Skin: Warm, Dry, Intact Neurological: No New Focal Deficit Psy/Mental Status: Alert, Normal Affect, Normal Mood - Problem List & Annotations (1) Pre-eclampsia, severe, with delivery SNOMED Code(s): 914495484, 630773678 Code(s): O14.14 - SEVERE PRE-ECLAMPSIA COMPLICATING CHILDBIRTH Status: Acute Current Visit: Yes (2) Normal vaginal delivery SNOMED Code(s): 62029898, 692626886 Code(s): O80 - ENCOUNTER FOR FULL-TERM UNCOMPLICATED DELIVERY Status: Acute Current Visit: Yes - Problem List Review Problem List Initiated/Reviewed/Updated: Yes - My Orders Last 24 Hours: My Active Orders 08/30/19 10:00 Deep Tendon Reflexes [WOMSER] Q1H 08/30/19 11:00 Deep Tendon Reflexes [WOMSER] Q1H 08/30/19 11:13 Labetalol [Normodyne] 20 mg IVPUSH Q10M PRN hydrALAZINE [Apresoline] 10 mg IVPUSH ONETIME PRN 08/30/19 12:00 Deep Tendon Reflexes [WOMSER] Q1H 08/30/19 13:00 Deep Tendon Reflexes [WOMSER] Q1H 08/30/19 14:00 Deep Tendon Reflexes [WOMSER] Q1 08/30/19 15:00 Deep Tendon Reflexes [WOMSER] Q1 08/30/19 16:00 Deep Tendon Reflexes [WOMSER] Q1 08/30/19 17:00 Deep Tendon Reflexes [WOMSER] Q1 08/30/19 18:00 Deep Tendon Reflexes [WOMSER] Q1 08/30/19 19:00 Deep Tendon Reflexes [WOMSER] Q1 08/30/19 20:00 Deep Tendon Reflexes [WOMSER] Q1 08/30/19 21:00 Deep Tendon Reflexes [WOMSER] Q1 08/30/19 21:30 Patient Status [ADT] Routine May Shower [RC] ASDIRECTED Up ad Mariah [RC] ASDIRECTED Vital Signs [RC] PER UNIT ROUTINE Acetaminophen [Tylenol Extra Strength] 1,000 mg PO Q4H PRN Acetaminophen [Tylenol Extra Strength] 500 mg PO Q4H PRN Benzocaine/Menthol [Dermoplast Pain Relief 20%-0.5% Elmo] 78 gm TOP ASDIRECTED PRN Docusate Sodium [Colace] 100 mg PO BID PRN Ibuprofen [Motrin] 400 mg PO Q4H PRN Ibuprofen [Motrin] 800 mg PO Q6H PRN Lanolin [Lansinoh HPA] See Dose Instructions TOP ASDIRECTED PRN bisacodyL [Dulcolax] 10 mg RECTAL ONETIME PRN oxyCODONE 5 mg PO Q2H PRN witch Mac [Tucks] 1 pad TOP ASDIRECTED PRN Assess Lochia [WOMSER] Per Unit Routine Assess Uterine Involution [WOMSER] Per Unit Routine Peripheral IV Discontinue [OM.PC] Routine 08/30/19 22:00 Deep Tendon Reflexes [WOMSER] Q1H 08/30/19 23:00 Deep Tendon Reflexes [WOMSER] Q1H 08/31/19 00:00 Deep Tendon Reflexes [WOMSER] Q1H 08/31/19 01:00 Deep Tendon Reflexes [WOMSER] Q1H 08/31/19 02:00 Deep Tendon Reflexes [WOMSER] Q1 08/31/19 03:00 Deep Tendon Reflexes [WOMSER] Q1 08/31/19 04:00 Deep Tendon Reflexes [WOMSER] 08/31/19 05:00 Deep Tendon Reflexes [WOMSER] 08/31/19 06:00 Deep Tendon Reflexes [WOMSER] 08/31/19 07:00 Deep Tendon Reflexes [WOMSER] 08/31/19 Breakfast Regular Diet [DIET] - Assessment Assessment:: PPD#1 after , severe pre-eclampsia. Magnesium has been off since delivery, still level of 4.4 Mg level was over 7 at time of delivery resulting in hypotension. Anemic on admission 10.0, now 6.9, denies dizziness or headache. Urine out has been good showing diuresis. BP improved since delivery. - Plan Plan:: Continue fluid restriction, monitoring urine output and BP until 1 pm, then may discontinue [place]ford, discontinue fluid restrictions and ambulate,, with assistance.
--- NOTE | 2019-08-31 10:43 | PCM48HPAN ---
Post Anesthesia Note - EVALUATION WITHIN 48HRS OF ANESTHETIC Vital Signs in Normal Range: Yes Patient Participated in Evaluation: Yes Respiratory Function Stable: Yes Airway Patent: Yes Cardiovascular Function Stable: Yes Hydration Status Stable: Yes Pain Control Satisfactory: Yes Nausea and Vomiting Control Satisfactory: Yes Mental Status Recovered: Yes Vital Signs: Last Vital Signs Temp 36.7 C 08/31/19 07:30 Pulse 81 08/31/19 09:00 Resp 16 08/31/19 09:00 BP 115/59 L 08/31/19 09:00 Pulse Ox 98 08/31/19 09:00 - COMMENTS/OBSERVATIONS Free Text/Narrative:: Mg level coming down. Hgb 6.8. Doing well at present.
[2019-08-31] MEDS: Ibuprofen 800 MG Tab PO PRN ×2 (13:46→23:12)
[2019-09-01] MEDS: Acetaminophen 500 MG Tab PO PRN (08:14)
--- NOTE | 2019-09-01 08:27 | PCM.PNPP ---
- General Info Date of Service: 09/01/19 Subjective Update: Patient denies preeclampsia symptoms. Has pressure in head when she stands. Denies dizziness with ambulation. Minimal lochia. Perineal pain, controlled with ice packs and medication. Functional Status: Reports: Pain Controlled, Tolerating Diet, Ambulating, Urinating - Review of Systems General: Reports: No Symptoms HEENT: Reports: No Symptoms Pulmonary: Reports: No Symptoms Cardiovascular: Reports: No Symptoms Gastrointestinal: Reports: No Symptoms Genitourinary: Reports: No Symptoms Musculoskeletal: Reports: No Symptoms Skin: Reports: No Symptoms Neurological: Reports: No Symptoms Psychiatric: Reports: No Symptoms - Patient Data Vital Signs - Most Recent: Last Vital Signs Temp 36.5 C 09/01/19 00:07 Pulse 71 09/01/19 03:13 Resp 20 09/01/19 03:13 BP 137/75 09/01/19 03:13 Pulse Ox 98 09/01/19 03:13 Weight - Most Recent: 78.471 kg I&O - Last 24 Hours: Intake & Output 08/31/19 09/01/19 09/01/19 22:59 06:59 14:59 Output Total 800 Balance -800 Med Orders - Current: Current Medications Acetaminophen (Tylenol Extra Strength) 500 mg PO Q4H PRN PRN Reason: Pain Acetaminophen (Tylenol Extra Strength) 1,000 mg PO Q4H PRN PRN Reason: Pain Last Admin: 09/01/19 08:14 Dose: 1,000 mg Benzocaine/Menthol (Dermoplast Pain Relief 20%-0.5% [place]) 78 gm TOP ASDIRECTED PRN PRN Reason: Perineal Comfort Measure Last Admin: 08/30/19 22:03 Dose: 1 canister Bisacodyl (Dulcolax) 10 mg RECTAL ONETIME PRN PRN Reason: Constipation Calcium Gluconate (Calcium Gluconate) 1 gm IV ASDIRECTED PRN PRN Reason: respiratory distress Carboprost Tromethamine (Hemabate Ds) 250 mcg IM ASDIRECTED PRN PRN Reason: Post Hemorrhage Docusate Sodium (Colace) 100 mg PO BID PRN PRN Reason: Constipation Last Admin: 08/30/19 22:04 Dose: 100 mg Emollient Ointment (Lansinoh Hpa) 0 gm TOP ASDIRECTED PRN PRN Reason: Sore Nipples Last Admin: 08/30/19 22:04 Dose: 7 gm Hydralazine HCl (Apresoline) 10 mg IVPUSH ONETIME PRN PRN Reason: Hypertension Tranexamic Acid 1,000 mg/ (Sodium Chloride) 110 mls @ 660 mls/hr IV ONETIME PRN PRN Reason: Bleeding Last Admin: 08/30/19 19:34 Dose: 660 mls/hr Magnesium Sulfate (Magnesium Sulfate In Water Premix) 20 gm in 500 mls @ 50 mls /hr IV ASDIRECTED MONA Last Infusion: 08/30/19 19:15 Dose: 0 gm/hr, 0 mls/hr Oxytocin/Sodium Chloride (Oxytocin 30 Unit/500 Ml-Ns) 30 unit in 500 mls @ 2 mls/hr IV TITRATE MONA; Protocol Last Titration: 08/30/19 19:24 Dose: 0 munits/min, 0 mls/hr Ibuprofen (Motrin) 400 mg PO Q4H PRN PRN Reason: Pain Ibuprofen (Motrin) 800 mg PO Q6H PRN PRN Reason: Pain Last Admin: 08/31/19 23:12 Dose: 800 mg Labetalol HCl (Normodyne) 20 mg IVPUSH Q10M PRN; Protocol PRN Reason: Hypertension Methylergonovine Maleate (Methergine) 0.2 mg IM ASDIRECTED PRN PRN Reason: Post Hemorrhage Misoprostol (Cytotec) 200 mcg PO ONETIME PRN PRN Reason: Post Hemorrhage Oxycodone HCl (Oxycodone) 5 mg PO Q2H PRN PRN Reason: Pain Sodium Chloride (Saline Flush) 10 ml FLUSH ASDIRECTED PRN PRN Reason: Keep Vein Open Sodium Chloride (Saline Flush) 2.5 ml FLUSH ASDIRECTED PRN PRN Reason: Keep Vein Open Sodium Chloride (Normal Saline) 10 ml IV ASDIRECTED PRN PRN Reason: IV Use Witch Liliam (Tucks) 1 pad TOP ASDIRECTED PRN PRN Reason: comfort care Last Admin: 08/30/19 22:04 Dose: 1 tub Discontinued Medications Butorphanol Tartrate (Stadol) 1 mg IVPUSH Q1H PRN PRN Reason: Pain Fentanyl (Sublimaze) Confirm Administered Dose 100 mcg .ROUTE .STK-MED ONE Stop: 02/29/20 09:04 Fentanyl (Sublimaze) Confirm Administered Dose 100 mcg .ROUTE .STK-MED ONE Stop: 08/30/19 11:29 Fentanyl (Sublimaze) Confirm Administered Dose 100 mcg .ROUTE .STK-MED ONE Stop: 08/30/19 17:52 Lactated Ringer's (Ringers, Lactated) 1,000 mls @ 150 mls/hr IV ASDIRECTED MONA Oxytocin/Sodium Chloride (Oxytocin 30 Unit/500 Ml-Ns) 30 unit in 500 mls @ 500 mls/hr IV TITRATE MONA Oxytocin/Sodium Chloride (Oxytocin 30 Unit/500 Ml-Ns) 30 unit in 500 mls @ 2 mls/hr IV TITRATE MONA; Protocol Magnesium Sulfate 4 gm/ Premix 100 mls @ 300 mls/hr IV BOLUS ONE Stop: 08/30/19 08:05 Last Admin: 08/30/19 08:15 Dose: 300 mls/hr Ropivacaine (Naropin 0.2%) Confirm Administered Dose 100 mls @ as directed .ROUTE .ST-MED ONE Stop: 08/30/19 09:04 Ropivacaine (Naropin 0.2%) Confirm Administered Dose 100 mls @ as directed .ROUTE .STK-MED ONE Stop: 08/30/19 17:52 Sodium Chloride (Normal Saline) Confirm Administered Dose 0 mls @ as directed .ROUTE .ST-MED ONE Stop: 08/30/19 21:48 Sodium Chloride (Normal Saline) Confirm Administered Dose 100 mls @ as directed .ROUTE .STK-MED ONE Stop: 08/30/19 22:21 Labetalol HCl (Normodyne) 10 mg IVPUSH ONETIME ONE; Protocol Stop: 08/30/19 06:55 Last Admin: 08/30/19 07:12 Dose: 10 mg Lidocaine HCl (Xylocaine 1%) 50 ml INJECT ONETIME PRN PRN Reason: Laceration repair Misoprostol (Cytotec) 25 mcg VAG ONETIME PRN PRN Reason: Cervical Ripening Last Admin: 08/30/19 01:29 Dose: 25 mcg Misoprostol (Cytotec) 25 mcg VAG Q4H PRN PRN Reason: Cervical Ripening Misoprostol (Cytotec) 25 mcg PO ONETIME ONE Stop: 08/30/19 00:33 Last Admin: 08/30/19 01:31 Dose: 25 mcg Nalbuphine HCl (Nubain) 10 mg IVPUSH Q1H PRN PRN Reason: Pain (severe 7-10) Phenylephrine HCl (Phenylephrine In Ns 100 Mcg/Ml) Confirm Administered Dose 1 mg .ROUTE .STK-MED ONE Stop: 08/30/19 19:41 Sterile Water (Sterile Water For Irrigation) 1,000 ml IRR ASDIRECTED PRN PRN Reason: delivery Last Admin: 08/30/19 19:20 Dose: 1,000 ml Terbutaline Sulfate (Brethine) 0.25 mg SUBCUT ASDIRECTED PRN PRN Reason: Tacysystole Tranexamic Acid (Cyklokapron) Confirm Administered Dose 1,000 mg .ROUTE .STK- MED ONE Stop: 08/30/19 21:47 - Infant Interaction Disposition, : [place] in Room with Family Infant Interaction: Not Interacting (partner holding ) Feeding: Breastfed Infant; Nursed Well Support Person: - Recovery Exam Fundal Tone: Firm Fundal Level: 1 Fingerbreadths Below Umbilicus Fundal Placement: Midline Lochia Amount: None Lochia Color: Rubra/Red Other Perinuem Description: Second degree tear,repaired Bladder Status: Voiding Urinary Elimination: Voided - Exam General: Alert, Oriented Neck: Supple Lungs: Clear to Auscultation, Normal Respiratory Effort Cardiovascular: Regular Rate, Regular Rhythm GI/Abdominal Exam: Soft, Non-Tender Extremities: Non-Tender, No Pedal Edema Skin: Warm, Dry, Intact Neurological: No New Focal Deficit Psy/Mental Status: Alert, Normal Affect, Normal Mood - Problem List & Annotations (1) Anemia complicating puerperium SNOMED Code(s): 106405538 Code(s): O99.03 - ANEMIA COMPLICATING THE PUERPERIUM Status: Acute Current Visit: Yes (2) Normal vaginal delivery SNOMED Code(s): 19164274, 846329881 Code(s): O80 - ENCOUNTER FOR FULL-TERM UNCOMPLICATED DELIVERY Status: Acute Current Visit: Yes (3) Pre-eclampsia, severe, with delivery SNOMED Code(s): 245901991, 133793171 Code(s): O14.14 - SEVERE PRE-ECLAMPSIA COMPLICATING CHILDBIRTH Status: Acute Current Visit: Yes - Problem List Review Problem List Initiated/Reviewed/Updated: Yes - Assessment Assessment:: PPD#2 after , severe pre-eclampsia and anemia - Plan Plan:: 1. Hgb 6.9 today. Patient denies dizziness with ambulation but reports pressure in head with standing. Will transfuse 2 units packed RBCs. Reviewed risks of transfusion, including HIV, Hepatitis, fever, and itching. Will pre-medicate with tylenol and benadryl. Patient voiced understanding and agreed to transfusion. 2. Preeclampsia with severe features. Denies symptoms, blood pressures normal. Received magnesium intrapartum for seizure prophylaxis. 3. Dispo. If appropriate improvement in hemoglobin with transfusion and continued normal blood pressures, will plan for discharge home this evening. Reviewed discharge instructions.
[2019-09-01] MEDS ORDERED: diphenhydrAMINE 25 MG Cap PO ONE (08:28)
[2019-09-01] MEDS ORDERED: Acetaminophen 500 MG Tab PO ONE (08:28)
[2019-09-01] MEDS: Ferrous Sulfate 325 MG Tab PO SCH ×2 (11:24→20:06)
--- NOTE | 2019-09-01 12:04 | PCM.SN ---
- Free Text/Narrative Note: Patient now declines blood transfusion. Denies dizziness with ambulation, believes pressure in head due to neck pain. Will begin twice daily oral iron supplementation. Vital signs normal.
[2019-09-01] MEDS ORDERED: Midazolam 1 MG/ML 2 ML SDV ONE (16:33)
[2019-09-01] MEDS ORDERED: Lidocaine 1% 50 ML MDV ONE (17:09)
[2019-09-01] MEDS ORDERED: Acetaminophen/Butalbital/Caffeine 325-50-40 MG Tab PO ONE (17:52)
[2019-09-01 18:54] LABS: BLOOD UREA NITROGEN,BUN 11 mg/dL (7.0-18.0); CARBON DIOXIDE,CO2 26.1 mmol/L (21.0-32.0); CHLORIDE,CL 107 mmol/L (98-107); GLUCOSE RANDOM 127 mg/dL (74-106); SODIUM,NA 142 mmol/L (136-145)
--- NOTE | 2019-09-01 18:56 | CT ---
Head CT Technique: Multiple axial sections through the brain were obtained. Intravenous contrast was not utilized. Comparison: Ventricles along with basal cisterns and sulci over the convexities are within normal limits for the patient's age. Extra-axial air noted within the posterior fossa as well as supratentorially within the aqueduct of Sylvius and within the suprasellar cistern and basal cisterns. Air is also noted within the posterior neck and within the cervical canal. Etiology of this air is not seen on this exam. No intracranial hemorrhage is seen. No midline shift or mass effect is seen. Visualized paranasal sinuses and mastoid sinuses are clear. No acute calvarial abnormality is appreciated. Impression: 1. Intracranial air as well as air within the cervical canal and air within the soft tissues of the posterior right neck. Etiology of this air is not identified on this study. 2. No acute intracranial abnormality is otherwise seen. Note: Please correlate if patient has had recent intrathecal catheter as an etiology of the air. Diagnostic code #5 Study was dictated in [place] Standard Time
--- NOTE | 2019-09-01 19:18 | PCM.SN ---
- Free Text/Narrative Note: Patient's headache unresolved after blood patch placement. Blood pressure remains normal-mild range. CBC and CMP within normal limits. CT head without contrast obtained to rule-out PRES. Intracranial air seen on CT head. Discussed with patient the diagnosis of pneumocephalus, and symptomatic treatment as recommendation. Will give Fioricet for headache, if no improvement , will consider narcotic pain medication. Will consider neurology consultation tomorrow if no improvement in headache for alternative treatment options. Patient frustrated that CT head was not obtained sooner and that blood patch took a significant amount of time to place. Reviewed headaches that are worse with sitting upright and improved by lying down is often consistent with a spinal headache after epidural, and that blood patch is the correct treatment and resolves most anesthesia-related headaches. Patient voiced understanding to this reasoning.
[2019-09-01] MEDS ORDERED: Temazepam 15 MG Cap PO PRN (19:19)
--- NOTE | 2019-09-01 20:13 | PCM.SN ---
- Free Text/Narrative Note: 09/01/2019 1550: Consult from Dr. Pickens for patient evaluation of Post-Epidural Headache. Patient complaint of severe pain to back of neck. States it feels swollen to her. Conservative measures were taken without any relief. Patient very anxious. Explained procedure for Blood patch. Patient agrees to proceed. Explained the option of using versed as well as the benefits and risks of versed to help her relax. Patient would like to have versed for procedure. Consented for procedure. [employer] called away for emergency. Explained to patient I would be back as soon as possible. 1630: Preparing for Blood patch. Blood pressure monitor placed and pulse oximeter on. VSS. Patient has had mutiple bruises from IV sticks on both arms. Veins appear very small in both arms. Opted to use Ultrasound for IV placement. Patient very nervous so administered Versed 0.5 mg IV at 1645. RN assisting with procedure. Placed an 18 gauge IV to left medial upper arm at 1649. Good blood return. Saline locked. Epidural Tuohy placement: prepped betadine and draped in sterile fashion. Assessing back and patient has 4 poke sites. Placed local lidocaine 1% to L4-5. Attempted to place 17g Tuohy. Patient with discomfort on back and feels pain on right. Versed 1 mg given at 1653. More local placed and attempted same level. Unsuccessful. Aborted level and moved to L3-4. Local to skin 1% lidocaine 6 ml. 17g Tuohy placed with ease. Loss of resistance at 5cm. RN attempted to draw blood off new 18g IV placed but was not able to get any blood back. Versed 0.5 mg given at 1711. Ultrasound attempted to place another 18g to left arm. Unsuccessful x2 attempts. Moved to right arm. Used ultrasound to place a 20g to right upper arm. Good blood return and 20 ml of blood drawn off. Tuohy needle placement confirmed with loss of resistance and 20 ml of blood injected slowly at 1743. Patient complaint of some pressure with injection. Patient also states that the pain is much worse and is in so much pain she can not verbalize. Patient's vital signs remain stable. Assisted patient lay flat. Instructed nurse to watch closely and call Dr. Pickens if patient does not get any relief from Blood Patch. Patient tolerated procedure better than expected. Time with patient for procedure [id number].
[2019-09-02] MEDS: Ferrous Sulfate 325 MG Tab PO SCH (07:47)
--- NOTE | 2019-09-02 08:07 | PCM.PNPP ---
- General Info Date of Service: 09/02/19 Subjective Update: Patient reports headache much improved, though still has some neck stiffness. Denies preeclampsia symptoms. Minimal lochia and pain. Functional Status: Reports: Tolerating Diet, Ambulating, Urinating - Review of Systems General: Reports: No Symptoms Pulmonary: Reports: No Symptoms Cardiovascular: Reports: No Symptoms Gastrointestinal: Reports: No Symptoms Genitourinary: Reports: No Symptoms Musculoskeletal: Reports: No Symptoms Skin: Reports: No Symptoms Neurological: Reports: No Symptoms Psychiatric: Reports: No Symptoms - Patient Data Vital Signs - Most Recent: Last Vital Signs Temp 36.8 C 09/02/19 04:30 Pulse 86 09/02/19 04:30 Resp 16 09/02/19 04:30 BP 129/65 09/02/19 04:30 Pulse Ox 99 09/02/19 04:30 Weight - Most Recent: 78.471 kg I&O - Last 24 Hours: Intake & Output 09/01/19 09/02/19 09/02/19 22:59 06:59 14:59 Output Total 900 Balance -900 Lab Results - Last 24 Hours: Laboratory Results - last 24 hr 08/30/19 09/01/19 09/01/19 Range/Units 00:50 18:12 18:12 WBC 10.78 (4.0-11.0) K/uL RBC 2.45 L (4.30-5.90) M/uL Hgb 7.6 L (12.0-16.0) g/dL Hct 23.0 L (36.0-46.0) % MCV 93.9 (80.0-98.0) fL MCH 31.0 (27.0-32.0) pg MCHC 33.0 (31.0-37.0) g/dL RDW Std Deviation 49.7 (28.0-62.0) fl RDW Coeff of Seble 14 (11.0-15.0) % Plt Count 163 (150-400) K/uL MPV 9.80 (7.40-12.00) fL Neut % (Auto) 83.1 H (48.0-80.0) % Lymph % (Auto) 10.3 L (16.0-40.0) % [place] % (Auto) 6.4 (0.0-15.0) % Eos % (Auto) 0.1 (0.0-7.0) % Baso % (Auto) 0.1 (0.0-1.5) % Neut # (Auto) 9.0 H (1.4-5.7) K/uL Lymph # (Auto) 1.1 (0.6-2.4) K/uL [place] # (Auto) 0.7 (0.0-0.8) K/uL Eos # (Auto) 0.0 (0.0-0.7) K/uL Baso # (Auto) 0.0 (0.0-0.1) K/uL Nucleated RBC % 0.6 /100WBC Nucleated RBCs # 0 K/uL Sodium 142 (136-145) mmol/L Potassium 4.0 (3.5-5.1) mmol/L Chloride 107 (98-107) mmol/L Carbon Dioxide 26.1 (21.0-32.0) mmol/L BUN 11 (7.0-18.0) mg/dL Creatinine 0.7 (0.6-1.0) mg/dL Est Cr Clr Drug Dosing 91.09 mL/min Estimated GFR (MDRD) > 60.0 ml/min Glucose 127 H (74-106) mg/dL Calcium 8.1 L (8.5-10.1) mg/dL Total Bilirubin 0.1 L (0.2-1.0) mg/dL AST 21 (15-37) IU/L ALT 15 (14-63) IU/L Alkaline Phosphatase 119 H (46-116) U/L Total Protein 5.5 L (6.4-8.2) g/dL Albumin 2.0 L (3.4-5.0) g/dL Globulin 3.5 (2.6-4.0) g/dL Albumin/Globulin Ratio 0.6 L (0.9-1.6) Blood Type O POSITIVE Antibody Screen NEGATIVE Crossmatch See Detail Med Orders - Current: Current Medications Acetaminophen (Tylenol Extra Strength) 500 mg PO Q4H PRN PRN Reason: Pain Acetaminophen (Tylenol Extra Strength) 1,000 mg PO Q4H PRN PRN Reason: Pain Last Admin: 09/01/19 08:14 Dose: 1,000 mg Benzocaine/Menthol (Dermoplast Pain Relief 20%-0.5% Donald) 78 gm TOP ASDIRECTED PRN PRN Reason: Perineal Comfort Measure Last Admin: 08/30/19 22:03 Dose: 1 canister Bisacodyl (Dulcolax) 10 mg RECTAL ONETIME PRN PRN Reason: Constipation Calcium Gluconate (Calcium Gluconate) 1 gm IV ASDIRECTED PRN PRN Reason: respiratory distress Carboprost Tromethamine (Hemabate Ds) 250 mcg IM ASDIRECTED PRN PRN Reason: Post Hemorrhage Docusate Sodium (Colace) 100 mg PO BID PRN PRN Reason: Constipation Last Admin: 08/30/19 22:04 Dose: 100 mg Emollient Ointment (Lansinoh Hpa) 0 gm TOP ASDIRECTED PRN PRN Reason: Sore Nipples Last Admin: 08/30/19 22:04 Dose: 7 gm Ferrous Sulfate (Ferrous Sulfate) 325 mg PO BIDMEALS MONA Last Admin: 09/02/19 07:47 Dose: 325 mg Hydralazine HCl (Apresoline) 10 mg IVPUSH ONETIME PRN PRN Reason: Hypertension Tranexamic Acid 1,000 mg/ (Sodium Chloride) 110 mls @ 660 mls/hr IV ONETIME PRN PRN Reason: Bleeding Last Admin: 08/30/19 19:34 Dose: 660 mls/hr Magnesium Sulfate (Magnesium Sulfate In Water Premix) 20 gm in 500 mls @ 50 mls /hr IV ASDIRECTED MONA Last Infusion: 08/30/19 19:15 Dose: 0 gm/hr, 0 mls/hr Oxytocin/Sodium Chloride (Oxytocin 30 Unit/500 Ml-Ns) 30 unit in 500 mls @ 2 mls/hr IV TITRATE [facility]; Protocol Last Titration: 08/30/19 19:24 Dose: 0 munits/min, 0 mls/hr Ibuprofen (Motrin) 400 mg PO Q4H PRN PRN Reason: Pain Ibuprofen (Motrin) 800 mg PO Q6H PRN PRN Reason: Pain Last Admin: 08/31/19 23:12 Dose: 800 mg Labetalol HCl (Normodyne) 20 mg IVPUSH Q10M PRN; Protocol PRN Reason: Hypertension Methylergonovine Maleate (Methergine) 0.2 mg IM ASDIRECTED PRN PRN Reason: Post Hemorrhage Misoprostol (Cytotec) 200 mcg PO ONETIME PRN PRN Reason: Post Hemorrhage Oxycodone HCl (Oxycodone) 5 mg PO Q2H PRN PRN Reason: Pain Sodium Chloride (Saline Flush) 10 ml FLUSH ASDIRECTED PRN PRN Reason: Keep Vein Open Sodium Chloride (Saline Flush) 2.5 ml FLUSH ASDIRECTED PRN PRN Reason: Keep Vein Open Sodium Chloride (Normal Saline) 10 ml IV ASDIRECTED PRN PRN Reason: IV Use Temazepam (Restoril) 15 mg PO BEDTIME PRN PRN Reason: Sleep Last Admin: 09/01/19 23:30 Dose: 15 mg Witch Liliam (Tucks) 1 pad TOP ASDIRECTED PRN PRN Reason: comfort care Last Admin: 08/30/19 22:04 Dose: 1 tub Discontinued Medications Acetaminophen (Tylenol Extra Strength) 1,000 mg PO ONETIME ONE Stop: 09/01/19 08:29 Last Admin: 09/01/19 11:15 Dose: Not Given Acetaminophen/Butalbital/Caffeine (Fioricet 325-50-40 Mg) 2 tab PO ONETIME ONE Stop: 09/01/19 17:53 Last Admin: 09/01/19 19:42 Dose: 2 tab Butorphanol Tartrate (Stadol) 1 mg IVPUSH Q1H PRN PRN Reason: Pain Diphenhydramine HCl (Benadryl) 25 mg PO ONETIME ONE Stop: 09/01/19 08:29 Last Admin: 09/01/19 11:15 Dose: Not Given Fentanyl (Sublimaze) Confirm Administered Dose 100 mcg .ROUTE .STK-MED ONE Stop: 08/30/19 09:04 Fentanyl (Sublimaze) Confirm Administered Dose 100 mcg .ROUTE .STK-MED ONE Stop: 08/30/19 11:29 Fentanyl (Sublimaze) Confirm Administered Dose 100 mcg .ROUTE .STK-MED ONE Stop: 08/30/19 17:52 Lactated Ringer's (Ringers, Lactated) 1,000 mls @ 150 mls/hr IV ASDIRECTED MONA Oxytocin/Sodium Chloride (Oxytocin 30 Unit/500 Ml-Ns) 30 unit in 500 mls @ 500 mls/hr IV TITRATE MONA Oxytocin/Sodium Chloride (Oxytocin 30 Unit/500 Ml-Ns) 30 unit in 500 mls @ 2 mls/hr IV TITRATE MONA; Protocol Magnesium Sulfate 4 gm/ Premix 100 mls @ 300 mls/hr IV BOLUS ONE Stop: 08/30/19 08:05 Last Admin: 08/30/19 08:15 Dose: 300 mls/hr Ropivacaine (Naropin 0.2%) Confirm Administered Dose 100 mls @ as directed .ROUTE .STK-MED ONE Stop: 08/30/19 09:04 Ropivacaine (Naropin 0.2%) Confirm Administered Dose 100 mls @ as directed .ROUTE .STK-MED ONE Stop: 08/30/19 17:52 Sodium Chloride (Normal Saline) Confirm Administered Dose 0 mls @ as directed .ROUTE .STK-MED ONE Stop: 08/30/19 21:48 Sodium Chloride (Normal Saline) Confirm Administered Dose 100 mls @ as directed .ROUTE .STK-MED ONE Stop: 08/30/19 22:21 Labetalol HCl (Normodyne) 10 mg IVPUSH ONETIME ONE; Protocol Stop: 08/30/19 06:55 Last Admin: 08/30/19 07:12 Dose: 10 mg Lidocaine HCl (Xylocaine 1%) 50 ml INJECT ONETIME PRN PRN Reason: Laceration repair Lidocaine HCl (Xylocaine 1%) Confirm Administered Dose 50 ml .ROUTE .STK-MED ONE Stop: 09/01/19 17:10 Midazolam HCl (Versed 1 Mg/Ml) Confirm Administered Dose 2 mg .ROUTE .STK-MED ONE Stop: 09/01/19 16:34 Misoprostol (Cytotec) 25 mcg VAG ONETIME PRN PRN Reason: Cervical Ripening Last Admin: 08/30/19 01:29 Dose: 25 mcg Misoprostol (Cytotec) 25 mcg VAG Q4H PRN PRN Reason: Cervical Ripening Misoprostol (Cytotec) 25 mcg PO ONETIME ONE Stop: 08/30/19 00:33 Last Admin: 08/30/19 01:31 Dose: 25 mcg Nalbuphine HCl (Nubain) 10 mg IVPUSH Q1H PRN PRN Reason: Pain (severe 7-10) Phenylephrine HCl (Phenylephrine In Ns 100 Mcg/Ml) Confirm Administered Dose 1 mg .ROUTE .STK-MED ONE Stop: 02/29/20 19:41 Sterile Water (Sterile Water For Irrigation) 1,000 ml IRR ASDIRECTED PRN PRN Reason: delivery Last Admin: 08/30/19 19:20 Dose: 1,000 ml Terbutaline Sulfate (Brethine) 0.25 mg SUBCUT ASDIRECTED PRN PRN Reason: Tacysystole Tranexamic Acid (Cyklokapron) Confirm Administered Dose 1,000 mg .ROUTE .STK- MED ONE Stop: 08/30/19 21:47 - Infant Interaction Disposition, : in Room with Family Infant Feeding: Breastfed Infant; Nursed Well Support Person: - Recovery Exam Fundal Tone: Firm Fundal Level: 2 Fingerbreadths Below Umbilicus Fundal Placement: Midline Lochia Amount: Scant Lochia Color: Rubra/Red Other Perinuem Description: Second degree tear,repaired Bladder Status: Voiding Urinary Elimination: Voided - Exam General: Alert, Oriented Neck: Supple Lungs: Clear to Auscultation, Normal Respiratory Effort Cardiovascular: Regular Rate, Regular Rhythm GI/Abdominal Exam: Soft, Non-Tender Extremities: Non-Tender, No Pedal Edema Skin: Warm, Dry, Intact Neurological: No New Focal Deficit Psy/Mental Status: Alert, Normal Affect, Normal Mood - Problem List & Annotations (1) Anemia complicating puerperium SNOMED Code(s): 496433345 Code(s): O99.03 - ANEMIA COMPLICATING THE PUERPERIUM Status: Acute Current Visit: Yes (2) Normal vaginal delivery SNOMED Code(s): 48807058, 163529383 Code(s): O80 - ENCOUNTER FOR FULL-TERM UNCOMPLICATED DELIVERY Status: Acute Current Visit: Yes (3) Pre-eclampsia, severe, with delivery SNOMED Code(s): 900793296, 792017688 Code(s): O14.14 - SEVERE PRE-ECLAMPSIA COMPLICATING CHILDBIRTH Status: Acute Current Visit: Yes (4) Epidural pneumocephalus SNOMED Code(s): 42089820, 83401953, 80295810, 11970209 Code(s): G93.89 - OTHER SPECIFIED DISORDERS OF BRAIN Status: Acute Current Visit: Yes Onset Date: ~09/01/19 - Problem List Review Problem List Initiated/Reviewed/Updated: Yes - My Orders Last 24 Hours: My Active Orders 09/01/19 08:27 Verify Patient Consent Obtain [RC] ASDIRECTED RED BLOOD CELLS LP [BBK] Routine Transfuse Red Blood Cells [COMM] Routine 09/01/19 11:12 Ferrous Sulfate 325 mg PO BIDMEALS 09/01/19 19:19 Temazepam [Restoril] 15 mg PO BEDTIME PRN 09/02/19 08:00 Ready for Discharge [RC] PER UNIT ROUTINE - Assessment Assessment:: PPD#3 after , with severe preeclampsia, anemia, and epidural pneumocephalus - Plan Plan:: 1. Anemia: Hgb 7 on 09/01/19. Denies dizziness with ambulation. Patient declined blood transfusion on 08/31, begun on twice daily oral iron supplementation. 2. Preeclampsia with severe features: Denies symptoms, blood pressures normal. Received magnesium intrapartum for seizure prophylaxis. Has blood pressure check scheduled for 09/05/19. 3. Epidural pneumocephalus: Headache improved with Fioricet, prescription sent to pharmacy. 4. Dispo: Discharge home today. Reviewed discharge instructions and precautions.
--- NOTE | 2019-09-02 12:52 | PCM.SN ---
- Free Text/Narrative Note: Post procedure Blood Patch Follow up: Visited with Dr. Pickens last evening (2019) after patient's CT scan which showed pneumocephalus. Dr. Pickens treating symptoms and pain control. Today, while rounding, I found patient up standing by bassinet tending to . Patient doing so much better and pain is essentially gone except a sore neck. Patient was very appreciative. No further anesthesia complications noted. Dr. Pickens's plan is to send patient home today.
== END 2019-09-02 12:15 | disposition home or self-care (01) | DRG 560 ==
LOC: MW.OBCHECK 23:46 → MW.OB 23:52 → OBSVTOIN 08-30 19:24 → MW.OB 08-31 01:55
PROVIDERS: ADMIT Obstetrics & Gynecology; ATTEND Obstetrics & Gynecology
PROC: 10E0XZZ Delivery of Products of Conception, External Approach (ICD-10-PCS; principal; 2019-08-30)
PROC: 0KQM0ZZ Repair Perineum Muscle, Open Approach (ICD-10-PCS; 2019-08-30)
PROC: 3E0P7VZ Introduction of Hormone into Female Reproductive, Via Natural or Artificial Opening (ICD-10-PCS; 2019-08-30)
PROC: 3E033VJ Introduction of Other Hormone into Peripheral Vein, Percutaneous Approach (ICD-10-PCS; 2019-08-30)
PROC: 3E0R3BZ Introduction of Anesthetic Agent into Spinal Canal, Percutaneous Approach (ICD-10-PCS; 2019-08-30)
PROC: 00HU33Z Insertion of Infusion Device into Spinal Canal, Percutaneous Approach (ICD-10-PCS; 2019-08-30)
PROC: 10H07YZ Insertion of Other Device into Products of Conception, Via Natural or Artificial Opening (ICD-10-PCS; 2019-08-30)
PROC: 3E0R3GC Introduction of Other Therapeutic Substance into Spinal Canal, Percutaneous Approach (ICD-10-PCS; 2019-08-30)
DX: O14.14 Severe pre-eclampsia complicating childbirth (principal); O70.1 Second degree perineal laceration during delivery; O48.0 Post-term pregnancy; D64.9 Anemia, unspecified; G93.89 Other specified disorders of brain; O99.354 Diseases of the nervous system complicating childbirth; O77.0 Labor and delivery complicated by meconium in amniotic fluid; O99.03 Anemia complicating the puerperium; Z3A.40 40 weeks gestation of pregnancy; Z37.0 Single live birth; Z79.899 Other long term (current) drug therapy
CPT/HCPCS: 01967; 36415; 51702; 59025; 59409; 70450; 70450-26; 80053; 81003; 83735; 84550; 85014; 85018; 85025; 85027; 86592; 86593; 86850; 86900; 86901; 86920; 86921; 86922; A9270-GY; J2250; J2370; J2590; J2795; J3010; J3475; J3490; J7050

== ENCOUNTER 2021-06-15 15:46 | Emergency (ER) | payer BC ==
[2021-06-15] MEDS ORDERED: Ondansetron 4 MG/2 ML SDV IVPUSH ONE (16:34)
[2021-06-15] MEDS ORDERED: Sodium Chloride 0.9% 1,000 ML IV ONE (16:34)
[2021-06-15] MEDS ORDERED: Sodium Chloride 0.9% 10 ML Syringe FLUSH PRN (16:34)
[2021-06-15] MEDS ORDERED: Sodium Chloride 0.9% 2.5 ML Syringe FLUSH PRN (16:34)
[2021-06-15] MEDS ORDERED: HYDROmorphone 1 MG/ML Syringe IVPUSH ONE (16:34)
[2021-06-15 17:37] LABS: BLOOD UREA NITROGEN,BUN 17 mg/dL (7.0-18.0); CARBON DIOXIDE,CO2 24.7 mmol/L (21.0-32.0); CHLORIDE,CL 101 mmol/L (98-107); GLUCOSE RANDOM 112 mg/dL (74-106); LIPASE 52 U/L (73-393); POTASSIUM,K 3.6 mmol/L (3.5-5.1); SODIUM,NA 136 mmol/L (136-145)
--- NOTE | 2021-06-15 19:02 | EDM.PDOC ---
ED HPI GENERAL MEDICAL PROBLEM - General Chief Complaint: Abdominal Pain Stated Complaint: ABDOMINAL PAIN Time Seen by Provider: 06/15/21 16:01 Source of Information: Reports: Patient History Limitations: Reports: No Limitations - History of Present Illness INITIAL COMMENTS - FREE TEXT/NARRATIVE: HISTORY AND PHYSICAL: History of present illness: Patient is a 31-year-old female who presents emergency room today with concern of rectal pain that started just prior to arrival to the emergency room. Patient states that the pain is sharp and feels like her rectum is pinching. P atient states that she is in a monogamous relationship for several years and is not concerned of sexually transmitted infection. Patient states that she is not on control however they are safe according to patient and use condoms. Patient states that she was just sitting there when she began feeling a sharp stabbing sensation in her rectum. Patient states that she is also having some associated pelvic discomfort but this is less severe than the rectal discomfort. Patient states that she has not had any change in bowel movements and has had regular bowel movements and states that there is nothing down there to represent her pain. Patient states that she does also get a similar sensation during intercourse, however, significantly less severe. Patient states that her and her have not had sexual intercourse for quite some time as he had a recent surgery but states that they had sexual intercourse again yesterday. She states that she did not have the pain yesterday. Patient states that she has not taken anything for her symptoms. Patient denies fever, chills, chest pain, shortness of breath, or cough. Denies headache, neck stiff ness, change in vision, syncope, or near syncope. Denies nausea, vomiting, abdominal pain, diarrhea, constipation, or dysuria. Has not noted any blood in urine or stool. Patient has been eating and drinking appropriately. Review of systems: As per history of present illness and below otherwise all systems reviewed and negative. Past medical history: As per history of present illness and as reviewed below otherwise noncontributo ry. Surgical history: As per history of present illness and as reviewed below otherwise noncontributory. Social history: See social history for further information Family history: As per history of present illness and as reviewed below otherwise noncontributory. Physical exam: General: Patient is alert, oriented, and appears greatly uncomfortable laying on her left side holding her lower abdomen and rectal area crying. Vitals stable and reviewed by me. HEENT: Atraumatic, normocephalic, pupils equal and reactive bilaterally, negative for conjunctival pallor or scleral icterus, mucous membranes moist, throat clear, neck supple, nontender, trachea midline. No drooling or trismus noted. No meningeal signs. No hot potato voice noted. Lungs: Clear to auscultation, breath sounds equal bilaterally, chest nontender. Heart: S1S2, regular rate and rhythm without overt murmur Abdomen: Soft, nondistended, nontender. Negative for masses or hepatosplenomegaly. Negative for costovertebral tenderness. Pelvis: Stable nontender. Genitourinary: [employer] at bedside Damaris Schulte. External genitalia grossly unremarkable. There is a small amount of white vaginal discharge in the vaginal vault. Significant tenderness of the cervix with palpation and difficult to assess the uterus and ovaries due to significant amount of pain. Rectal: Rectal tone intact. Patient does have discomfort with insertion of finger into the rectum without obvious hemorrhoid, mass, lesion noted. Skin: Intact, warm, dry. No lesions or rashes noted. Extremities: Atraumatic, negative for cords or calf pain. Neurovascular unremarkable. Neuro: Awake, alert, oriented. Cranial nerves II through XII unremarkable. Cerebellum unremarkable. Motor and sensory unremarkable throughout. Exam nonfocal. Medical Decision Making: Patient is an otherwise healthy 31-year-old female presenting to the emergency room today with concern of rectal pain/pelvic pain. Upon arrival to the ED, patient is rather uncomfortable holding her lower abdomen and rectal area and laying on her side. She does have a drastic increase of discomfort if she does lie flat and putting pressure on the rectal area. Examination also shows that patient does have some suprapubic tenderness, genitourinary exam shows that the cervix is significantly tender with difficult to assess the uterus and ovaries due to pain. At this time, will obtain IV access, provide therapeutics, obtain basic lab work, hcg, with plan to obtain transvaginal ultrasound/ abd pelvic CT scan. CBC unremarkable. CMP mild derangements are unremarkable. hCG is negative. Urinalysis is clear of infection. Affirm is negative. Gonorrhea chlamydia swab pending. Transvaginal ultrasound shows a 2.2 cm hemorrhagic cyst in the left ovary. Recommend ultrasound follow-up in 6 to 12 weeks for resolution. No evidence of ovarian torsion or tubo-ovarian abscess. Other exam otherwise unremarkable. Abdominal pelvic CT scan shows nondistended rectum, limiting exam. No grossly abnormal findings. Small left adnexal cystic focus in the mid pelvic free fluid may be physiologic, correlate clinically. Scattered irregular groundglass opacities in lung bases. COVID-19 possible ability. Upon reevaluation of patient, she has complete resolution of her symptoms and is now comfortable in the emergency room. I do feel patient symptoms were likely related to the hemorrhagic cyst given the sudden severity and sudden resolution. All incidental findings of imaging today discussed with patient the importance to have this followed up with a primary care provider and women's health care provider. Strict return precautions thoroughly discussed with patient. Voices understanding and is agreeable to plan of care. Denies any further questions or concerns at this time. Diagnostics: CBC, CMP, lipase, hCG, urinalysis, affirm, gonorrhea and chlamydia, transvaginal ultrasound, abd/pelvic ct w cont Therapeutics: NS, Dilaudid, Zofran Prescription: None Impression: Hemorrhagic cyst, left Plan: 1. You can alternate ibuprofen and Tylenol as directed for pain and discomfort. 2. Follow-up with the women's health care provider as discussed. The number has been provided above for you to call and establish an appointment time. 3. Return to the ED as needed and as discussed. Definitive disposition and diagnosis as appropriate pending reevaluation and review of above. lower abdomen/rectum Pain Score (Numeric/FACES): 10 - Related Data Allergies Allergy/AdvReac Type Severity Reaction Status Date / Time No Known Allergies Allergy Verified 06/15/21 16:00 Home Meds: Home Meds . [No Known Home Meds] 06/15/21 [History] Past Medical History - Past Health History Medical/Surgical History: Denies Medical/Surgical History HEENT History: Reports: None Cardiovascular History: Reports: None Respiratory History: Reports: None Gastrointestinal History: Reports: None Genitourinary History: Reports: None MANAGER NIGHT History: Reports: Musculoskeletal History: Reports: None Neurological History: Reports: Migraines Psychiatric History: Reports: None Endocrine/Metabolic History: Reports: None Hematologic History: Reports: None Immunologic History: Reports: None Oncologic (Cancer) History: Reports: None Dermatologic History: Reports: None - Infectious Disease History Infectious Disease History: Reports: None - Past Surgical History Head Surgeries/Procedures: Reports: None HEENT Surgical History: Reports: None Cardiovascular Surgical History: Reports: None Respiratory Surgical History: Reports: None GI Surgical History: Reports: None Female Surgical History: Reports: None Endocrine Surgical History: Reports: None Neurological Surgical History: Reports: None Musculoskeletal Surgical History: Reports: None Oncologic Surgical History: Reports: None Dermatological Surgical History: Reports: None Social & Family History - Family History Family Medical History: No Pertinent Family History HEENT: Reports: None Cardiac: Reports: Heart Failure, High Cholesterol, Hypertension, [place] Respiratory: Reports: None GI: Reports: None : Reports: None OBGYN: Reports: Musculoskeletal: Reports: Arthritis Neurological: Reports: CVA Psychiatric: Reports: Anxiety Endocrine/Metabolic: Reports: Diabetes, type II Hematologic: Reports: None Immunologic: Reports: None Dermatologic: Reports: None Oncologic: Reports: Brain - Caffeine Use Caffeine Use: Reports: None - Recreational Drug Use Recreational Drug Use: No ED ROS GENERAL - Review of Systems Review Of Systems: Comprehensive ROS is negative, except as noted in HPI. ED EXAM, GENERAL - Physical Exam Exam: See Below (see dictation) Course - Vital Signs Last Recorded V/S: Last Vital Signs Temp 97.2 F 06/15/21 20:50 Pulse 78 06/15/21 20:50 Resp 18 06/15/21 20:50 BP 102/64 06/15/21 20:50 Pulse Ox 97 06/15/21 20:50 - Orders/Labs/Meds Labs: Laboratory Tests 06/15/21 06/15/21 06/15/21 Range/Units 16:28 16:28 17:04 WBC 6.06 (4.0-11.0) K/uL RBC 4.51 (4.30-5.90) M/uL Hgb 13.8 (12.0-16.0) g/dL Hct 40.2 (36.0-46.0) % MCV 89.1 (80.0-98.0) fL MCH 30.6 (27.0-32.0) pg MCHC 34.3 (31.0-37.0) g/dL RDW Std Deviation 38.7 (28.0-62.0) fl RDW Coeff of [place] 12 (11.0-15.0) % Plt Count 209 (150-400) K/uL MPV 9.60 (7.40-12.00) fL Neut % (Auto) 72.4 (48.0-80.0) % Lymph % (Auto) 20.8 (16.0-40.0) % [place] % (Auto) 5.8 (0.0-15.0) % Eos % (Auto) 0.8 (0.0-7.0) % Baso % (Auto) 0.2 (0.0-1.5) % Neut # (Auto) 4.4 (1.4-5.7) K/uL Lymph # (Auto) 1.3 (0.6-2.4) K/uL [place] # (Auto) 0.4 (0.0-0.8) K/uL Eos # (Auto) 0.1 (0.0-0.7) K/uL Baso # (Auto) 0.0 (0.0-0.1) K/uL Nucleated RBC % 0.0 /100WBC Nucleated RBCs # 0 K/uL Sodium (136-145) mmol/L Potassium (3.5-5.1) mmol/L Chloride (98-107) mmol/L Carbon Dioxide (21.0-32.0) mmol/L BUN (7.0-18.0) mg/dL Creatinine (0.6-1.0) mg/dL Est Cr Clr Drug Dosing mL/min Estimated GFR (MDRD) ml/min Glucose (74-106) mg/dL Calcium (8.5-10.1) mg/dL Total Bilirubin (0.2-1.0) mg/dL AST (15-37) IU/L ALT (14-63) IU/L Alkaline Phosphatase (46-116) U/L Total Protein (6.4-8.2) g/dL Albumin (3.4-5.0) g/dL Globulin (2.6-4.0) g/dL Albumin/Globulin Ratio (0.9-1.6) Lipase (73-393) U/L HCG, Qual (NEG) Urine Color Urine Appearance Urine pH (5.0-8.0) Ur Specific [place] (1.001-1.035) Urine Protein (NEGATIVE) mg/dL Urine Glucose (UA) (NEGATIVE) mg/dL Urine Ketones (NEGATIVE) mg/dL Urine Occult Blood (NEGATIVE) Urine Nitrite (NEGATIVE) Urine Bilirubin (NEGATIVE) Urine Urobilinogen (<2.0) EU/dL Ur Leukocyte Esterase (NEGATIVE) Gisselle species DNA NEGATIVE (NEGATIVE) Chlamydia/GC Source GENITAL C.trachomatis RNA (TMA) Negative (Negative) Gardnerella DNA Probe NEGATIVE (NEGATIVE) N.gonorrhoeae RNA (TMA) Negative (Negative) Trichomonas DNA Probe NEGATIVE (NEGATIVE) 06/15/21 06/15/21 06/15/21 Range/Units 17:04 17:04 18:08 WBC (4.0-11.0) K/uL RBC (4.30-5.90) M/uL Hgb (12.0-16.0) g/dL Hct (36.0-46.0) % MCV (80.0-98.0) fL MCH (27.0-32.0) pg MCHC (31.0-37.0) g/dL RDW Std Deviation (28.0-62.0) fl RDW Coeff of [place] (11.0-15.0) % Plt Count (150-400) K/uL MPV (7.40-12.00) fL Neut % (Auto) (48.0-80.0) % Lymph % (Auto) (16.0-40.0) % [place] % (Auto) (0.0-15.0) % Eos % (Auto) (0.0-7.0) % Baso % (Auto) (0.0-1.5) % Neut # (Auto) (1.4-5.7) K/uL Lymph # (Auto) (0.6-2.4) K/uL [place] # (Auto) (0.0-0.8) K/uL Eos # (Auto) (0.0-0.7) K/uL Baso # (Auto) (0.0-0.1) K/uL Nucleated RBC % /100WBC Nucleated RBCs # K/uL Sodium 136 (136-145) mmol/L Potassium 3.6 (3.5-5.1) mmol/L Chloride 101 (98-107) mmol/L Carbon Dioxide 24.7 (21.0-32.0) mmol/L BUN 17 (7.0-18.0) mg/dL Creatinine 0.7 (0.6-1.0) mg/dL Est Cr Clr Drug Dosing 89.48 mL/min Estimated GFR (MDRD) > 60.0 ml/min Glucose 112 H (74-106) mg/dL Calcium 8.4 L (8.5-10.1) mg/dL Total Bilirubin 0.1 L (0.2-1.0) mg/dL AST 20 (15-37) IU/L ALT 24 (14-63) IU/L Alkaline Phosphatase 88 (46-116) U/L Total Protein 7.7 (6.4-8.2) g/dL Albumin 3.8 (3.4-5.0) g/dL Globulin 3.9 (2.6-4.0) g/dL Albumin/Globulin Ratio 1.0 (0.9-1.6) Lipase 52 L (73-393) U/L HCG, Qual NEGATIVE (NEG) Urine Color STRAW Urine Appearance CLEAR Urine pH 6.0 (5.0-8.0) Ur Specific [place] 1.015 (1.001-1.035) Urine Protein NEGATIVE (NEGATIVE) mg/dL Urine Glucose (UA) NEGATIVE (NEGATIVE) mg/dL Urine Ketones NEGATIVE (NEGATIVE) mg/dL Urine Occult Blood NEGATIVE (NEGATIVE) Urine Nitrite NEGATIVE (NEGATIVE) Urine Bilirubin NEGATIVE (NEGATIVE) Urine Urobilinogen 0.2 (<2.0) EU/dL Ur Leukocyte Esterase NEGATIVE (NEGATIVE) Gisselle species DNA (NEGATIVE) Chlamydia/GC Source C.trachomatis RNA (TMA) (Negative) Gardnerella DNA Probe (NEGATIVE) N.gonorrhoeae RNA (TMA) (Negative) Trichomonas DNA Probe (NEGATIVE) Meds: Medications Discontinued Medications Generic Name Dose Route Start Last Admin Trade Name Freq PRN Reason Stop Dose Admin Hydromorphone HCl 1 mg 06/15/21 16:34 06/15/21 16:53 Hydromorphone 1 Mg/Ml Syringe IVPUSH 06/15/21 16:35 1 mg ONETIME ONE Administration Sodium Chloride 1,000 mls @ 999 mls/hr 06/15/21 16:34 06/15/21 16:54 Normal Saline IV 06/15/21 17:34 999 mls/hr BOLUS ONE Administration Iopamidol 100 ml 06/15/21 19:15 06/15/21 19:16 Iopamidol 755 Mg/Ml 500 Ml Multipack Bottle IVPUSH 06/15/21 19:16 100 ml ONETIME STA Administration Ondansetron HCl 4 mg 06/15/21 16:34 06/15/21 16:52 Ondansetron 4 Mg/2 Ml Sdv IVPUSH 06/15/21 16:35 4 mg ONETIME ONE Administration Sodium Chloride 10 ml 06/15/21 16:34 06/15/21 16:54 Sodium Chloride 0.9% 10 Ml Syringe FLUSH 10 ml ASDIRECTED PRN Administration Keep Vein Open Sodium Chloride 2.5 ml 06/15/21 16:34 06/15/21 16:53 Sodium Chloride 0.9% 2.5 Ml Syringe FLUSH 2.5 ml ASDIRECTED PRN Administration Keep Vein Open Departure - Departure Time of Disposition: 20:31 Disposition: Home, Self-Care 01 Clinical Impression: Hemorrhagic cyst - Discharge Information Instructions: Ovarian Cyst, [id number] Referrals: PCP,None [Primary Care Provider] - Forms: ED Department Discharge Additional Instructions: The following information is given to patients seen in the emergency department who are being discharged to home. This information is to outline your options for follow-up care. We provide all patients seen in our emergency department with a follow-up referral. The need for follow-up, as well as the timing and circumstances, are variable de pending upon the specifics of your emergency department visit. If you don't have a primary care physician on staff, we will provide you with a referral. We always advise you to contact your personal physician following an emergency department visit to inform them of the circumstance of the visit and for follow-up with them and/or the need for any referrals to a consulting specialist. The emergency department will also refer you to a specialist when appropriate. This referral assures that you have the opportunity for follow-up care with a specialist. All of these measure are taken in an effort to provide you with optimal care, which includes your follow-up. Under all circumstances we always encourage you to contact your private physician who remains a resource for coordinating your care. When calling for follow-up care, please make the office aware that this follow-up is from your recent emergency room visit. If for any reason you are refused follow-up, please contact the [facility] Emergency Department at and asked to speak to the emergency department charge nurse. [facility] [address] [place] [id number] 1. You can alternate ibuprofen and Tylenol as directed for pain and discomfort. 2. Follow-up with the [facility] care provider as discussed. The number has been provided above for you to call and establish an appointment time. 3. Return to the ED as needed and as discussed. Sepsis Event Note (ED) - Evaluation Sepsis Screening Result: No Definite Risk
[2021-06-15] MEDS ORDERED: Iopamidol 755 MG/ML 500 ML Multipack Bottle IVPUSH STA (19:15)
--- NOTE | 2021-06-15 19:49 | US ---
INDICATION: Sudden onset pelvic pain, torsion versus TOA. COMPARISON: CT of the abdomen and pelvis 06/15/2021. TECHNIQUE: 2D herrera scale and color Doppler images were acquired of the pelvis using a transabdominal and transvaginal approach. FINDINGS: Sonographic images demonstrate a normal size and smooth outer contour of the uterus. The uterus is anteverted in position. The uterus measures 8.0 cm in length by 3.5 cm in AP diameter by 4.1 cm in transverse dimension. The myometrium has a normal uniform echotexture. The endometrial lining appears normal and measures 9 mm in composite thickness. Nabothian cysts in the cervix. The right ovary measures 2.5 x 2.4 x 2.3 cm in size and the left ovary measures 2.6 x 2.3 x 2.8 cm. The ovaries demonstrate normal arterial and venous blood flow on color Doppler analysis. There is a 1.8 x 1.7 x 2.2 cm complex cystic lesion left ovary with low-level internal echoes. No internal vascularity. This most likely represents a hemorrhagic cyst. No free fluid in the cul-de-sac. IMPRESSION: 1. 2.2 cm hemorrhagic cyst in the left ovary. Consider ultrasound follow-up in 6-12 weeks to ensure resolution. 2. No evidence of ovarian torsion or tubo-ovarian abscess. 3. Exam otherwise unremarkable. Dictated by Wandy Flores MD @ 06/15/2021 7:49:10 PM (Electronically Signed)
--- NOTE | 2021-06-15 20:02 | CT ---
Indication: Lower abdominal pain, rectal pain Technique: Contrast enhanced axial CT imaging through the abdomen and pelvis. 100 mL Isovue 370 contrast agent was administered intravenously. Sagittal and coronal reconstructions are provided. Comparison: None Findings: No abnormalities are demonstrated relating to the liver, gallbladder, spleen, pancreas, adrenal glands, and kidneys. The portal vein, hepatic veins, IVC, and renal veins are patent. The abdominal aorta is normal in caliber. There is no abdominal or pelvic lymphadenopathy. The urinary bladder, uterus, and right ovary are unremarkable. A 2 cm cystic focus is noted in the left ovary. There is mild nonspecific pelvic free fluid. The stomach and duodenum are unremarkable. There is no small bowel wall thickening or abnormal distention. The appendix is noninflamed. There is no colonic wall thickening or mesenteric edema. The rectum is decompressed, limiting assessment. The osseous structures are unremarkable. Scattered irregular ground-glass opacities are noted in the lung bases. Impression: 1. Nondistended rectum, limiting assessment. No gross abnormality identified. 2. Small left adnexal cystic focus and mild pelvic free fluid may be physiologic. Correlate clinically. 3. Scattered irregular ground-glass opacities in the lung bases. COVID-19 is a possibility. Correlate clinically. Consider follow-up chest CT. Please note that all CT scans at this facility use dose modulation, iterative reconstruction, and/or weight-based dosing when appropriate to reduce radiation dose to as low as reasonably achievable. Dictated by Price Jacobs MD @ 06/15/2021 8:01:18 PM (Electronically Signed)
[2021-06-17 12:08] LABS: C.TRACHOMATIS BY TMA Negative (Negative); N.GONORRHOEAE BY TMA Negative (Negative)
== END 2021-06-15 20:52 | disposition home or self-care (01) ==
LOC: MW.ED 15:46
DX: N83.202 Unspecified ovarian cyst, left side (principal)
CPT/HCPCS: 36415; 74177; 76830; 80053; 81003; 83690; 84703; 85025; 87480; 87491; 87510; 87591; 87660; 96374; 96375; 99284; J1170; J2405; J7030; Q9967